=== PATIENT | female | born 1955 | race Caucasian/White ===

== ENCOUNTER → 2017-05-04 | Outpatient (CLI) | payer OTHER | END | disposition home or self-care (01) | LOC: C.LABPBG 12:30 | PROVIDERS: ATTEND Family Medicine | DX: L65.9 Nonscarring hair loss, unspecified (principal) ==

== ENCOUNTER → 2017-06-02 | Outpatient (CLI) | payer OTHER ==
[2017-06-02 15:53] LABS: BASO % 0.6 %; BASO ABS # 0.05 K/uL (0-0.2); COMPLETE YES; EOS % 1.7 %; HEMATOCRIT 46.2 % (37-47); IG% 0.2 %; LYMPH % 27.8 %; MEAN CELL VOLUME 91.3 fL (80-100); MEAN CORPUSCULAR HEMOGLOBIN 31.4 pg (25-34); MEAN CORPUSCULAR HGB CONC 34.4 g/dl (32-36); MEAN PLATELET VOLUME 10.3 fL (7.4-10.4); MONO % 8.3 %; NEUT % 61.4 %; PLATELET COUNT 288 K/uL (130-400); RED BLOOD COUNT 5.06 M/uL (4.2-5.4); WHITE BLOOD COUNT 8.28 K/uL (4.8-10.8)
[2017-06-02 16:23] LABS: FERRITIN 25.7 ng/ml (8.0-388.0)
[2017-06-02 17:00] LABS: LYME DISEASE AB IGG NEG (NEG); LYME DISEASE AB IGM NEG (NEG)
[2017-06-07 23:57] LABS: 18KDIGG BAND NONREACTIVE (NONREACTIVE); 23KDIGG BAND NONREACTIVE (NONREACTIVE); 23KDIGM BAND NONREACTIVE (NONREACTIVE); 28KDIGG BAND NONREACTIVE (NONREACTIVE); 30KDIGG BAND NONREACTIVE (NONREACTIVE); 39KDIGG BAND NONREACTIVE (NONREACTIVE); 39KDIGM BAND NONREACTIVE (NONREACTIVE); 41KDIGG BAND NONREACTIVE (NONREACTIVE); 41KDIGM BAND NONREACTIVE (NONREACTIVE); 45KDIGG BAND REACTIVE (NONREACTIVE); 58KDIGG BAND NONREACTIVE (NONREACTIVE); 66KDIGG BAND NONREACTIVE (NONREACTIVE); 93KDIGG BAND NONREACTIVE (NONREACTIVE)
== END | disposition home or self-care (01) ==
LOC: C.LAB1850 14:44
PROVIDERS: ATTEND Dermatology
DX: L65.9 Nonscarring hair loss, unspecified (principal)

== ENCOUNTER → 2017-07-07 | Outpatient (CLI) | payer OTHER ==
[2017-07-07 17:43] LABS: URINE APPEARANCE CLEAR (CLEAR); URINE BILIRUBIN NEG (NEG); URINE COLOR YELLOW; URINE EPITHELIAL CELL AUTO 0-5 /lpf (0-5); URINE NITRITE NEG (NEG); URINE SPECIFIC GRAVITY 1.021 (1.000-1.030); UROBILINOGEN NEG (NEG)
[2017-07-07 17:47] LABS: MANUAL MICROSCOPIC REQUIRED? NO; REVIEW REQ? NO
[2017-07-13 02:34] LABS: ANTI-CENTROMERE AB <1.0 NEG AI (<1.0 NEG); ANTI-SS-A <1.0 NEG AI (<1.0 NEG); ANTI-SS-B <1.0 NEG AI (<1.0 NEG); DNA ds CRITHIDIA NEGATIVE (NEGATIVE); Sm Antibody <1.0 NEG AI (<1.0 NEG)
[2017-07-14 11:34] LABS: ANA TITER 1:40 TITER (<1:40)
== END | disposition home or self-care (01) ==
LOC: C.LABPBG 14:35
PROVIDERS: ATTEND Internal Medicine Rheumatology
DX: L65.9 Nonscarring hair loss, unspecified (principal); R76.8 Other specified abnormal immunological findings in serum

== ENCOUNTER → 2017-07-21 | Outpatient (CLI) | payer OTHER | END | disposition home or self-care (01) | LOC: C.LABSPEC 12:41 | PROVIDERS: ATTEND Dermatology | DX: R21 Rash and other nonspecific skin eruption (principal) ==

== ENCOUNTER 2023-07-30 17:26 | Inpatient (IN) ==
[2023-07-30] MEDS ORDERED: SODIUM CHLORIDE 0.9% 500 ML IV STA (18:05)
[2023-07-30] MEDS ORDERED: MoRPHine SULFATE 4 MG/ML 1 ML CARP\\VIAL IV STA (18:05)
[2023-07-30] MEDS ORDERED: KETOROLAC TROMETHAMINE 15 MG/ML VIAL IV STA (18:05)
[2023-07-30] MEDS ORDERED: ONDANSETRON INJ 2 MG/ML 2 ML VIAL IV STA (18:05)
--- NOTE | 2023-07-30 18:13 | Emergency Department Note ---
Impression & Plan Epigastric abdominal pain, Vomiting, Dilation of common bile duct, Elevated liver enzymes, Gall stones ED Provider Note NAME: MARY GIL AGE: 68 SEX: F : 1955 ARRIVES VIA: Walk-In INFORMANT: [Patient] ED PROVIDER(S): [Yasir Haney MD] CHIEF COMPLAINT: Abdominal pain HISTORY OF PRESENT ILLNESS: The patient is a 68-year-old female presents with 3 days of upper abdominal pa in. The pain seems to come on primarily after eating and lasts for several hours. The pain becomes fairly severe and radiates to the back. She has vomited a few times. She has had no urinary complaints or diarrhea, no fever or chills, no cough or congestion. She has had a surgery in the past, no history of any other abdominal surgeries. The patient does admit to some increased stress lately. She came from her father's today. PMHx/PSHx: See Below SOCIAL HISTORY: See Below. PHYSICAL EXAM: GENERAL: Patient is in no acute distress. HEENT: No acute trauma, normocephalic atraumatic, mucous membranes moist, no nasal congestion. NECK: No stridor, no adenopathy, no meningismus, trachea is midline. LUNGS: Clear to auscultation bilaterally, no wheeze, no rhonchi, breath sounds equal. HEART: Without murmurs gallops or rubs, regular rate and rhythm. ABDOMEN: Soft, moderately tender in the epigastrium and right upper quadrant, no distention. EXTREMITIES: No cyanosis or edema, full range of motion of all the joints without pain or difficulty, no signs for acute trauma. NEUROLOGIC: Oriented x 3, no acute motor or sensory deficits, no focal weakness. SKIN: No rash, no jaundice, no diaphoresis. DIFFERENTIAL DIAGNOSIS: Biliary colic, acute cholecystitis, gastritis, ulcer, pancreatitis, diverticulitis, cardiac ischemia/DE, among others. EMERGENCY DEPARTMENT COURSE/PROCEDURES: Prior/Outside records reviewed: Previous family practice note. ECG per my interpretation: Indication was abdominal pain. The ECG shows a normal sinus rhythm with a rate of 80. There is some nonspecific ST change. There is no ST elevation, no PVCs but the QTc is 470. Continuous Cardiac Monitoring per my interpretation: An order was placed for continuous cardiac monitoring. The monitor shows a rate of 86 with normal sinus rhythm. MEDICAL DECISION MAKING: There is a mild leukocytosis, this could be consistent with infection or just her pain. There was a slightly high hemoglobin value. There was a normal platelet count. Potassium slightly low but not in need of emergent correction. No renal failure. Liver enzymes were elevated. No evidence for pancreatitis. ECG shows a normal sinus rhythm, no ischemia. Cardiac enzyme testing x1 is not consistent with acute cardiac injury. Urinalysis does not show infection. Chest film per my review does not show mediastinal widening, free air or pneumonia. Gallbladder ultrasound shows a dilated common bile duct with gallstones. No findings of acute cholecystitis. On exam, the patient was tender in the epigastrium and right upper quadrant. Patient received IV saline for hydration. She received IV Zofran, IV morphine, IV Toradol. The patient appears to have biliary colic as the cause for her complaints. She does have what appears to be a stone blocking her common bile duct. I spoke with general surgery. They recommended a medical admission with a GI consult and then surgical consult. I did speak with the patient and case management, the on-call hospitalist was consulted. DISPOSITION: Patient's presentation and findings warrant a hospital stay. Past Med/Surg History Medical History (Updated 07/30/23 @ 22:03 by Yasir Haney MD) Alopecia areata Hypertension Insomnia Migraine Surgical History History of bilateral cataract extraction History of bilateral tubal ligation History of section x3 History of colonoscopy History of dilatation and curettage History of surgical procedure on mouth dental implant History of tonsillectomy History of wisdom tooth extraction Family History (Updated 07/05/23 @ 10:00 by Anaya Solitario MD) Aunt Family hx of colon cancer Brother Cardiac disorder Father Cardiac disorder Myocardial infarction Thyroid disease Liver cancer angiosarcoma, due to work place exposure Mother Cardiac disorder Myocardial infarction Thyroid disease Hypertension Sister No problems noted. Daughter No problems noted. Daughter Drug abuse Other No family history of adverse response to anesthesia Denies family history of Ovarian cancer Prostate cancer Breast cancer Social History Smoking Status: Never smoker Age Started Using Tobacco: 22; Cigarettes Per Day: 10 a day; Second Hand Exposure: No; Do You Dip or Chew Tobacco: No; Hx Alcohol Use: No Hx Substance Use: No Preferred Language: Swazi Communication Ability: Effective Visual Impairment: No Limitations Hearing Ability: Normal Emergency Dispatch Operator Required: No Beliefs That Will Affect Care: None marital status: Single Current Living Situation: Significant Other current occupational status: employed current occupation: ACCOUNTING How many Children do You have: 2 Feels Safe at Home: Yes Childhood Exposure to Second-Hand Smoke: No Diet: regular caffeine: Yes during the past year weight has: increased > 10 lbs Dental Care, Regularly: Yes Physical Activity Frequency: Daily Seatbelt Use: sometimes Sunscreen Use: No Do you think of yourself as: straight/heterosexual Assistive Devices: None Allergies Allergies Allergy/AdvReac Type Severity Reaction Status Date / Time No Known Drug Allergies Allergy Verified 07/05/23 09:27 Home Meds Previous Rx's Medication Instructions Recorded sumatriptan succinate 100 mg tablet 100 mg PO UD PRN Migraine Headache 06/09/22 #10 tabs trazodone 50 mg tablet 50 mg PO HS #90 tabs 09/07/22 hydrochlorothiazide 25 mg tablet 25 mg PO DAILY #90 tabs 10/28/22 amlodipine 10 mg tablet 10 mg PO DAILY #90 tabs 01/24/23 Results & Data (ED) Vital Signs Vital Signs - 24 hr 07/30/23 17:38 07/30/23 18:01 07/30/23 18:09 Temperature 36.6 C Temperature Source Temporal Artery Scan Pulse Rate 97 H 86 Pulse Rate from SpO2 Sensor Respiratory Rate 16 Respiratory Effort / Characteristics Non-Labored Respiratory Depth Normal Blood Pressure 172/95 H Blood Pressure Mean 120 Pulse Oximetry 97 98 Oxygen Delivery Method Room Air Room Air Sepsis Recent Fever Within 48 Hours No Sepsis New/Unexplained Change in Mental Status No Sepsis Action Taken by Nursing No Action Required 07/30/23 18:01 07/30/23 18:10 07/30/23 18:20 Temperature Temperature Source Pulse Rate 85 79 77 Pulse Rate from SpO2 Sensor 78 74 Respiratory Rate 19 16 13 Respiratory Effort / Characteristics Respiratory Depth Blood Pressure Blood Pressure Mean Pulse Oximetry 98 98 Oxygen Delivery Method Sepsis Recent Fever Within 48 Hours Sepsis New/Unexplained Change in Mental Status Sepsis Action Taken by Nursing 07/30/23 18:25 07/30/23 18:25 07/30/23 18:30 Temperature Temperature Source Pulse Rate 81 79 Pulse Rate from SpO2 Sensor 82 79 Respiratory Rate 20 19 Respiratory Effort / Characteristics Respiratory Depth Blood Pressure 181/97 H Blood Pressure Mean 126 Pulse Oximetry 98 97 Oxygen Delivery Method Sepsis Recent Fever Within 48 Hours Sepsis New/Unexplained Change in Mental Status Sepsis Action Taken by Nursing 07/30/23 18:40 07/30/23 19:29 07/30/23 19:31 Temperature Temperature Source Pulse Rate 82 Pulse Rate from SpO2 Sensor 82 78 Respiratory Rate 19 Respiratory Effort / Characteristics Respiratory Depth Blood Pressure 131/80 Blood Pressure Mean 87 Pulse Oximetry 95 95 Oxygen Delivery Method Sepsis Recent Fever Within 48 Hours Sepsis New/Unexplained Change in Mental Status Sepsis Action Taken by Skilled Nursing Medications Current Medication List: was personally reviewed by me Laboratory Data Attestation: I reviewed the patient's lab results. 07/30/23 18:06 07/30/23 18:06 Lab Results 07/30/23 07/30/23 07/30/23 Range/Units 18:06 18:06 19:40 WBC 12.12 H (4.8-10.8) K/ul RBC 5.33 (4.20-5.40) M/uL Hgb 16.4 H (12.0-16.0) g/dl Hct 46.4 (37.0-47.0) % MCV 87.1 (80.0-100.0) fL MCH 30.8 (25.0-34.0) pg MCHC 35.3 (32.0-36.0) g/dL RDW Std Deviation 43.5 (36.4-46.3) fL RDW Coeff of Laney 13.6 (11.5-14.5) % Plt Count 372 (130-400) K/uL MPV 10.6 (9.4-12.4) fL Immature Gran % (Auto) 0.5 % Neut % (Auto) 75.9 % Lymph % (Auto) 13.0 % Posey % (Auto) 8.7 % Eos % (Auto) 1.2 % Baso % (Auto) 0.7 % Neut # (Auto) 9.19 H (1.40-6.50) K/uL Lymph # (Auto) 1.58 (1.20-3.40) K/uL Posey # (Auto) 1.06 H (0.11-0.59) K/uL Eos # (Auto) 0.15 (0.00-0.50) K/uL Baso # (Auto) 0.08 (0.00-0.20) K/uL Immature Gran # (Auto) 0.06 (0.01-0.20) K/uL Sodium 140 (136-145) mmol/L Potassium 3.4 L (3.5-5.1) mmol/L Chloride 104 (98-107) mmol/L Carbon Dioxide 27 (21-32) mmol/L Anion Gap 9 (3-11) BUN 20 (6-23) mg/dl Creatinine 0.93 (0.6-1.2) mg/dl Est Cr Clr Drug Dosing Not Reportable Est GFR ( Amer) 74.2 ml/min Est GFR (Non-Af Amer) 64.0 ml/min BUN/Creatinine Ratio 21.5 H (10-20) Glucose 124 H (70-99(Fasting)) mg/dl Calcium 10.1 (8.6-10.3) mg/dl Total Bilirubin 1.5 H (0.2-1.0) mg/dl AST 231 H (13-39) U/L ALT 205 H (7-52) U/L Alkaline Phosphatase 190 H (34-104) U/L Troponin I High Sens 5.6 (0-14) pg/ml Total Protein 8.0 (6.0-8.3) gm/dl Albumin 4.7 (3.4-5.0) gm/dl Globulin 3.3 (2.5-4.0) gm/dl Albumin/Globulin Ratio 1.4 (0.9-2) Lipase 31 (11-82) U/L Urine Color Yellow Urine Appearance Clear (Clear) Urine pH 7.0 (4.5-7.5) Ur Specific [place] 1.012 (1.000-1.030) Urine Protein Negative (Negative) Urine Glucose (UA) Negative (Negative) Urine Ketones Trace H (Negative) Urine Blood Negative (Negative) Urine Nitrite Negative (Negative) Urine Bilirubin Negative (Negative) Urine Urobilinogen Negative (Negative) Ur Leukocyte Esterase Negative (Negative) Administered Medications Potassium Chloride/Sodium Chloride (Normal Saline W/20 Meq Kcl) 20 meq in 1,000 mls @ 100 mls/hr IV .Q10H LEAH; Protocol Stop: 08/29/23 21:14 Last Admin: 07/30/23 21:40 Dose: 100 mls/hr Documented By: ML Discontinued Medications Sodium Chloride (Nss) 500 mls @ 999 mls/hr IV .Q31M STA Stop: 07/30/23 18:35 Last Infusion: 07/30/23 19:04 Dose: 0 mls/hr Documented By: Admin: 07/30/23 18:19 Dose: 999 mls/hr Documented By: ML Pantoprazole Sodium 40 mg/ (Syringe) 10 mls @ 5 mls/min IV NOW ONE Stop: 07/30/23 21:16 Last Admin: 07/30/23 21:40 Dose: 5 mls/min Documented By: ML Piperacillin Sod/Tazobactam Sod (Zosyn) 4.5 gm in 100 mls @ 200 mls/hr IV NOW STA Stop: 07/30/23 21:54 Last Admin: 07/30/23 21:40 Dose: 200 mls/hr Documented By: ML Ketorolac Tromethamine (Ketorolac Tromethamine 15 Mg/Ml Vial) 10 mg IV NOW STA Stop: 07/30/23 18:06 Last Admin: 07/30/23 18:17 Dose: 10 mg Documented By: ML Morphine Sulfate (Morphine Sulfate 4 Mg/Ml 1 Ml Carp\Vial) 4 mg IV NOW STA Stop: 07/30/23 18:06 Last Admin: 07/30/23 18:17 Dose: 4 mg Documented By: ML Ondansetron HCl (Ondansetron Inj 2 Mg/Ml 2 Ml Vial) 4 mg IV NOW STA Stop: 07/30/23 18:06 Last Admin: 07/30/23 18:17 Dose: 4 mg Documented By: ML Imaging Data Radiologist's Impression: Chest X-Ray 07/30/23 18:05 XR chest 1V portable CLINICAL HISTORY: abd pain TECHNIQUE: Single frontal radiograph of the chest was obtained. Comparison: None available at the time of this dictation. FINDINGS: No lines and tubes are seen. The cardiomediastinal silhouette is normal. The lungs are clear. No evidence of pleural effusion or pneumothorax. IMPRESSION: No acute chest disease. ACT 112: Negative or not required by law. Electronically signed by: Bill Jara M.D. 07/30/2023 6:53 PM Gallbladder Ultrasound 10/14/23 18:06 US gallbladder CLINICAL HISTORY: ruq pain TECHNIQUE: Multiple real-time sonographic images of the right upper quadrant were obtained. Comparison: None available at the time of this dictation. FINDINGS: Intrahepatic biliary ductal dilation is noted. No focal mass lesions are seen. No intrahepatic ductal dilatation is seen. Linear hyperechoic foci with posterior shadowing are identified layering dependently within the gallbladder, which are consistent with gallstones. The gallbladder wall is not thickened. There is no pericholecystic fluid present. Mustafa's sign cannot be assessed as the patient received pain medication. The common duct measures 12 cm in diameter at the level of the hepatic artery. Pancreatic duct is dilated measuring 3.2 mm. Mild hydronephrosis is noted kidney. No ascites or free fluid is seen in Vega's pouch. IMPRESSION: 1. Dilation of the intra and extrahepatic biliary ducts as well as the pancreatic duct, suspicious for common bile duct obstruction. 2. Mild hydronephrosis of the right kidney. ACT 112: Negative or not required by law. Electronically signed by: Bill Jara M.D. 07/30/2023 7:48 PM Discharge Plan Visit Data Chief Complaint: Abdominal Pain Stated Complaint: PAIN LOWER BREASTS FOR 5 DAYS ED Provider: Yasir Haney Discharge Problem: Epigastric abdominal pain, Vomiting, Dilation of common bile duct, Elevated liver enzymes, Gall stones Patient Disposition: Admitted As Inpatient Condition: Fair Forms Stand Alone Forms: [facility] Prescriptions Prescriptions: No Action sumatriptan succinate 100 mg tablet 100 mg PO UD PRN (Reason: Migraine Headache) Qty: 10 5RF Rx Instructions: 100 mg PO TAKE ONE TABLET AT ONSET OF MIGRAINE; MAY REPEAT IN 2 HOURS IF NEEDED trazodone 50 mg tablet 50 mg PO HS Qty: 90 3RF hydrochlorothiazide 25 mg tablet 25 mg PO DAILY Qty: 90 1RF amlodipine 10 mg tablet 10 mg PO DAILY Qty: 90 1RF Referrals Referrals: Anaya Solitario MD [Primary Care Provider] -
[2023-07-30 18:39] LABS: Basophils # (auto) 0.08 K/uL (0.00-0.20); Basophils % (auto) 0.7 %; Eosinophils # (auto) 0.15 K/uL (0.00-0.50); Eosinophils % (auto) 1.2 %; Hematocrit (blood only) 46.4 % (37.0-47.0); Hemoglobin 16.4 g/dl (12.0-16.0); Immature Granulocytes # (auto) 0.06 K/uL (0.01-0.20); Immature Granulocytes % (auto) 0.5 %; Lymphocytes # (auto) 1.58 K/uL (1.20-3.40); Mean Corpuscular Hemoglobin 30.8 pg (25.0-34.0); Mean Corpuscular Hgb Conc 35.3 g/dL (32.0-36.0); Mean Corpuscular Volume 87.1 fL (80.0-100.0); Mean Platelet Volume 10.6 fL (9.4-12.4); Monocytes # (auto) 1.06 K/uL (0.11-0.59); Monocytes % (auto) 8.7 %; Neutrophils # (auto) 9.19 K/uL (1.40-6.50); Neutrophils % (auto) 75.9 %; Platelet Count 372 K/uL (130-400); RDW Coefficient of Variation 13.6 % (11.5-14.5); RDW Standard Deviation 43.5 fL (36.4-46.3); Red Blood Count 5.33 M/uL (4.20-5.40); White Blood Count 12.12 K/ul (4.8-10.8)
--- NOTE | 2023-07-30 18:54 | XRay Report ---
XR chest 1V portable CLINICAL HISTORY: abd pain TECHNIQUE: Single frontal radiograph of the chest was obtained. Comparison: None available at the time of this dictation. FINDINGS: No lines and tubes are seen. The cardiomediastinal silhouette is normal. The lungs are clear. No evid ence of pleural effusion or pneumothorax. IMPRESSION: No acute chest disease. ACT 112: Negative or not required by law. Electronically signed by: Bill Jara M.D. 07/30/2023 6:53 PM
[2023-07-30 18:56] LABS: Alanine Aminotransferase 205 U/L (7-52); Albumin Globulin Ratio 1.4 (0.9-2); Albumin Level 4.7 gm/dl (3.4-5.0); Alkaline Phosphatase 190 U/L (34-104); Anion Gap 9 (3-11); Aspartate Aminotransferase 231 U/L (13-39); BUN Creatinine Ratio 21.5 (10-20); Bilirubin,Total 1.5 mg/dl (0.2-1.0); Blood Urea Nitrogen 20 mg/dl (6-23); Calcium 10.1 mg/dl (8.6-10.3); Carbon Dioxide 27 mmol/L (21-32); Chloride 104 mmol/L (98-107); Est GFR (African American) 74.2 ml/min; Globulin 3.3 gm/dl (2.5-4.0); Glucose 124 mg/dl (70-99(Fasting)); Lipase 31 U/L (11-82); Potassium 3.4 mmol/L (3.5-5.1); Sodium 140 mmol/L (136-145)
[2023-07-30 19:01] LABS: Troponin I High Sensitivity 5.6 pg/ml (0-14)
--- NOTE | 2023-07-30 19:50 | Ultrasound Report ---
US gallbladder CLINICAL HISTORY: ruq pain TECHNIQUE: Multiple real-time sonographic images of the right upper quadrant were obtained. Comparison: None available at the time of this dictation. FINDINGS: Intrahepatic biliary ductal dilation is noted. No focal mass lesions are seen. No intrahepatic denise anitra dilatation is seen. Linear hyperechoic foci with posterior shadowing are identified layering dep endently within the gallbladder, which are consistent with gallstones. The gallbladder wall is not th ickened. There is no pericholecystic fluid present. Mustafa's sign cannot be assessed as the patient received pain medication. The common duct measures 12 cm in diameter at the level of the hepatic [place] ry. Pancreatic duct is dilated measuring 3.2 mm. Mild hydronephrosis is noted kidney. No ascites or free fluid is seen in Vega's pouch. IMPRESSION: 1. Dilation of the intra and extrahepatic biliary ducts as well as the pancreatic duct, suspicious f or common bile duct obstruction. 2. Mild hydronephrosis of the right kidney. ACT 112: Negative or not required by law. Electronically signed by: Bill Jara M.D. 07/30/2023 7:48 PM
[2023-07-30 20:40] LABS: Appearance Urine Clear (Clear); Bilirubin Urine Negative (Negative); Blood Urine Negative (Negative); Color Urine Yellow; Glucose Urine UA Negative (Negative); Ketones Urine Trace (Negative); Leukocyte Esterase Urine Negative (Negative); Nitrite Urine Negative (Negative); Protein Urine Negative (Negative); Specific Gravity Urine 1.012 (1.000-1.030); Urobilinogen Urine Negative (Negative)
[2023-07-30] MEDS ORDERED: MoRPHine SULFATE 4 MG/ML 1 ML CARP\\VIAL IV PRN (21:08)
[2023-07-30] MEDS ORDERED: ONDANSETRON INJ 2 MG/ML 2 ML VIAL IV PRN (21:12)
[2023-07-30] MEDS ORDERED: LORazepam 2 MG/1 ML VIAL IV ONE (21:15)
[2023-07-30] MEDS ORDERED: PANTOprazole 40 MG in SYRINGE 0 ML IV ONE (21:15)
[2023-07-30] MEDS ORDERED: PIPERACILLIN/TAZOBACTAM 4.5 GM/100 ML BAG IV STA (21:25)
[2023-07-30] MEDS ORDERED: hydrALAZINE HCL 20 MG/ML VIAL IV PRN (21:36)
--- NOTE | 2023-07-30 21:37 | History & Physical Report ---
Date of Service July 30, 2023 Assessment & Plan (1) Common bile duct obstruction: (2) Abnormal LFTs: (3) Hypokalemia: (4) Hypertension: (5) Hydronephrosis of right kidney: (6) Tobacco use disorder, continuous: (7) Migraine: (8) Dehydration, mild: Plan Common bile duct obstruction/dilated intra and extrahepatic biliary ducts/abnormal LFTs- NPO except ice chips Zofran 4 mg IV every 6 hours as needed Morphine sulfate 4 mg IV every 3 hours as needed for moderate to severe pain Pantoprazole 40 mg IV daily Zosyn 4.5 g IV every 8 hours NSS + KCl 20 mEq at 100 mils per hour Consult gastroenterology Consult general surgery Hypertension/hypokalemia- Hold HCTZ and amlodipine Hydralazine 10 mg IV every 4 hours as needed for systolic blood pressure above 160 Tobacco use disorder- NicoDerm patch 14 mg daily is written for and patient will ask if she wants it Hydronephrosis of right kidney- Noted as an incidental finding on CT Will need follow-up History of Present Illness Chief Complaint: The patient presents to the emergency department with complaint of 3 days of progressively worsening right upper quadrant and epigastric abdominal discomfort, worsened by food intake, occasionally radiating to her back, and had a few episodes of nausea and vomiting today. Primary Care Provider: Anaya Solitario MD The patient is a 68-year-old female with past medical history including hypertension, migraine headache, tobacco use disorder, and insomnia. She presents to the emergency department with symptoms as noted above. Significant abnormal laboratories: WBC 12.12, hemoglobin 16.4, hematocrit 46.4, platelets 3.4, glucose 124, total bilirubin 1.5, AST 231, ALT 205, alk phos 190 X-ray chest negative Gallbladder ultrasound showed dilation of intra and extrahepatic biliary ducts, concerning for common bile duct obstruction. Medications given by ED: NSS 500 mill bolus, Toradol 10 mg IV, Zofran 4 mg IV and morphine sulfate 4 mg IV Allergies Allergy/AdvReac Type Severity Reaction Status Date / Time No Known Drug Allergies Allergy Verified 07/05/23 09:27 Home Medications Medication Instructions Recorded Confirmed Type sumatriptan succinate 100 mg tablet 100 mg PO UD PRN Migraine Headache 06/09/22 07/05/23 Rx #10 tabs trazodone 50 mg tablet 50 mg PO HS #90 tabs 11/22/22 09/19/23 Rx hydrochlorothiazide 25 mg tablet 25 mg PO DAILY #90 tabs 10/28/22 07/05/23 Rx amlodipine 10 mg tablet 10 mg PO DAILY #90 tabs 01/24/23 07/05/23 Rx Past Med/Surg History Medical History (Updated 07/30/23 @ 21:32 by Wallace López MD) Alopecia areata Hypertension Insomnia Migraine Surgical History History of bilateral cataract extraction History of bilateral tubal ligation History of section x3 History of colonoscopy History of dilatation and curettage History of surgical procedure on mouth dental implant History of tonsillectomy History of wisdom tooth extraction Family History (Updated 07/05/23 @ 10:00 by Anaya Solitario MD) Aunt Family hx of colon cancer Brother Cardiac disorder Father Cardiac disorder Myocardial infarction Thyroid disease Liver cancer angiosarcoma, due to work place exposure Mother Cardiac disorder Myocardial infarction Thyroid disease Hypertension Sister No problems noted. Daughter No problems noted. Daughter Drug abuse Other No family history of adverse response to anesthesia Denies family history of Ovarian cancer Prostate cancer Breast cancer Social History Smoking Status: Never smoker Age Started Using Tobacco: 22; Cigarettes Per Day: 10 a day; Second Hand Exposure: No; Do You Dip or Chew Tobacco: No; Hx Alcohol Use: No Hx Substance Use: No Preferred Language: Turkmen Communication Ability: Effective Visual Impairment: No Limitations Hearing Ability: Normal Calculating Machine Operator Required: No Beliefs That Will Affect Care: None marital status: Single Current Living Situation: Significant Other current occupational status: employed current occupation: ACCOUNTING How many Children do You have: 2 Feels Safe at Home: Yes Childhood Exposure to Second-Hand Smoke: No Diet: regular caffeine: Yes during the past year weight has: increased > 10 lbs Dental Care, Regularly: Yes Physical Activity Frequency: Daily Seatbelt Use: sometimes Sunscreen Use: No Do you think of yourself as: straight/heterosexual Assistive Devices: None Review of Systems Review of Systems: The patient denies chest pain, palpitations, shortness of breath, dyspnea on exertion, cough, lower extremity swelling, sore throat, fevers, chills, sweats, diarrhea , constipation, blood in urine or stool, dysuria, urinary frequency or urgency, lightheadedness, dizziness, headache, memory loss, loss of consciousness, rash, abnormal bruising or bleeding, imbalance, focal or generalized weakness, numbness or tingling in arms or legs, generalized arthralgias or myalgias, neck pain, or night sweats. The review of systems is otherwise negative other than for that already noted above, and at least 10 systems have been reviewed. Physical Exam Physical Exam: The patient is awake, alert and oriented 3, well developed and well nourished, normocephalic and atraumatic, lying in bed and in no acute distress. HEENT--PERRL, EOMI, mucous membranes and oropharynx mildly dry. Neck--supple. No JVD. No bruits. Thyroid normal, trachea midline, no adenopathy. Heart--normal S1 and S2. No murmurs, rubs or gallops. Lungs--clear bilaterally, no respiratory distress, no accessory muscle use. Abdomen--normal bowel sounds and soft. Mildly tender right upper quadrant status post morphine. Nondistended, no hernias or masses, no organomegaly. Extremities--no cyanosis or clubbing. No edema. Dermatologic--normal skin turgor, normal color, no abnormal lymph nodes, no rash. Neurologic--cranial nerves II through XII grossly intact. Rheumatologic--normal range of motion. Psychiatric--normal affect. Results & Data Results & Data Vital Signs (Past 12 Hours) Vital Signs Temp Pulse Resp BP Pulse Ox O2 Del Method 07/30/23 19:31 131/80 07/30/23 19:29 95 07/30/23 18:40 82 19 95 07/30/23 18:30 79 19 97 07/30/23 18:25 181/97 H 07/30/23 18:25 81 20 98 07/30/23 18:20 77 13 98 07/30/23 18:10 79 16 98 07/30/23 18:01 85 19 07/30/23 18:09 98 Room Air 07/30/23 18:01 86 07/30/23 17:38 36.6 C 97 H 16 172/95 H 97 Room Air Laboratory Results Laboratory Results WBC 12.12 K/ul (4.8-10.8) H 07/30/23 18:06 RBC 5.33 M/uL (4.20-5.40) 07/30/23 18:06 Hgb 16.4 g/dl (12.0-16.0) H 07/30/23 18:06 Hct 46.4 % (37.0-47.0) 07/30/23 18:06 MCV 87.1 fL (80.0-100.0) 07/30/23 18:06 MCH 30.8 pg (25.0-34.0) 07/30/23 18:06 MCHC 35.3 g/dL (32.0-36.0) 07/30/23 18:06 RDW Std Deviation 43.5 fL (36.4-46.3) 07/30/23 18:06 RDW Coeff of Laney 13.6 % (11.5-14.5) 07/30/23 18:06 Plt Count 372 K/uL (130-400) 07/30/23 18:06 MPV 10.6 fL (9.4-12.4) 07/30/23 18:06 Immature Gran % (Auto) 0.5 % 07/30/23 18:06 Neut % (Auto) 75.9 % 07/30/23 18:06 Lymph % (Auto) 13.0 % 07/30/23 18:06 [place] % (Auto) 8.7 % 07/30/23 18:06 Eos % (Auto) 1.2 % 07/30/23 18:06 Baso % (Auto) 0.7 % 07/30/23 18:06 Neut # (Auto) 9.19 K/uL (1.40-6.50) H 07/30/23 18:06 Lymph # (Auto) 1.58 K/uL (1.20-3.40) 07/30/23 18:06 [place]ucks # (Auto) 1.06 K/uL (0.11-0.59) H 07/30/23 18:06 Eos # (Auto) 0.15 K/uL (0.00-0.50) 07/30/23 18:06 Baso # (Auto) 0.08 K/uL (0.00-0.20) 07/30/23 18:06 Immature Gran # (Auto) 0.06 K/uL (0.01-0.20) 07/30/23 18:06 Sodium 140 mmol/L (136-145) 07/30/23 18:06 Potassium 3.4 mmol/L (3.5-5.1) L 07/30/23 18:06 Chloride 104 mmol/L (98-107) 07/30/23 18:06 Carbon Dioxide 27 mmol/L (21-32) 07/30/23 18:06 Anion Gap 9 (3-11) 07/30/23 18:06 BUN 20 mg/dl (6-23) 07/30/23 18:06 Creatinine 0.93 mg/dl (0.6-1.2) 07/30/23 18:06 Est Cr Clr Drug Dosing Not Reportable 07/30/23 18:06 Est GFR ( Amer) 74.2 ml/min 07/30/23 18:06 Est GFR (Non-Af Amer) 64.0 ml/min 07/30/23 18:06 BUN/Creatinine Ratio 21.5 (10-20) H 07/30/23 18:06 Glucose 124 mg/dl (70-99(Fasting)) H 07/30/23 18:06 Calcium 10.1 mg/dl (8.6-10.3) 07/30/23 18:06 Total Bilirubin 1.5 mg/dl (0.2-1.0) H 07/30/23 18:06 AST 231 U/L (13-39) H 07/30/23 18:06 ALT 205 U/L (7-52) H 07/30/23 18:06 Alkaline Phosphatase 190 U/L (34-104) H 07/30/23 18:06 Troponin I High Sens 5.6 pg/ml (0-14) 07/30/23 18:06 Total Protein 8.0 gm/dl (6.0-8.3) 07/30/23 18:06 Albumin 4.7 gm/dl (3.4-5.0) 07/30/23 18:06 Globulin 3.3 gm/dl (2.5-4.0) 07/30/23 18:06 Albumin/Globulin Ratio 1.4 (0.9-2) 07/30/23 18:06 Lipase 31 U/L (11-82) 07/30/23 18:06 Urine Color Yellow 07/30/23 19:40 Urine Appearance Clear (Clear) 07/30/23 19:40 Urine pH 7.0 (4.5-7.5) 07/30/23 19:40 Ur Specific [place] 1.012 (1.000-1.030) 07/30/23 19:40 Urine Protein Negative (Negative) 07/30/23 19:40 Urine Glucose (UA) Negative (Negative) 07/30/23 19:40 Urine Ketones Trace (Negative) H 07/30/23 19:40 Urine Blood Negative (Negative) 07/30/23 19:40 Urine Nitrite Negative (Negative) 07/30/23 19:40 Urine Bilirubin Negative (Negative) 07/30/23 19:40 Urine Urobilinogen Negative (Negative) 07/30/23 19:40 Ur Leukocyte Esterase Negative (Negative) 07/30/23 19:40 Impressions Chest X-Ray 07/30/23 18:05 XR chest 1V portable CLINICAL HISTORY: abd pain TECHNIQUE: Single frontal radiograph of the chest was obtained. Comparison: None available at the time of this dictation. FINDINGS: No lines and tubes are seen. The cardiomediastinal silhouette is normal. The lungs are clear. No evidence of pleural effusion or pneumothorax. IMPRESSION: No acute chest disease. ACT 112: Negative or not required by law. Electronically signed by: Bill Jara M.D. 07/30/2023 6:53 PM Gallbladder Ultrasound 07/30/23 18:06 US gallbladder CLINICAL HISTORY: ruq pain TECHNIQUE: Multiple real-time sonographic images of the right upper quadrant were obtained. Comparison: None available at the time of this dictation. FINDINGS: Intrahepatic biliary ductal dilation is noted. No focal mass lesions are seen. No intrahepatic ductal dilatation is seen. Linear hyperechoic foci with posterior shadowing are identified layering dependently within the gallbladder, which are consistent with gallstones. The gallbladder wall is not thickened. There is no pericholecystic fluid present. Mustafa's sign cannot be assessed as the patient received pain medication. The common duct measures 12 cm in diameter at the level of the hepatic artery. Pancreatic duct is dilated measuring 3.2 mm. Mild hydronephrosis is noted kidney. No ascites or free fluid is seen in Vega's pouch. IMPRESSION: 1. Dilation of the intra and extrahepatic biliary ducts as well as the pancreatic duct, suspicious for common bile duct obstruction. 2. Mild hydronephrosis of the right kidney. ACT 112: Negative or not required by law. Electronically signed by: Bill Jara M.D. 07/30/2023 7:48 PM Code Status & VTE Plan Code Status Full code VTE Prophylaxis Plan VTE Prophylaxis will be ordered: Yes PG Care Time/CCT Total # of Minutes Spent Total Time Spent with Patient: Total time spent is greater than 50% in coordination of care (as documented) at patient's floor/unit and/or counseling patient: Coding Level of Care Code 54868 INT INP/OBS CARE 3/75MIN Diagnoses Common bile duct obstruction K83.1 Abnormal LFTs R79.89 Hypokalemia E87.6 Hypertension I10 Hydronephrosis of right kidney N13.30 Tobacco use disorder, continuous F17.209 Migraine G43.909 Dehydration, mild E86.0
[2023-07-30] MEDS: NSS + 20MEQ KCL 20 MEQ/1,000 ML BAG IV SCH (21:40)
[2023-07-31] MEDS ORDERED: SUMAtriptan succinate 100 MG TAB PO PRN (00:24)
[2023-07-31] MEDS ORDERED: INFLUENZA VACCINE HIGH-DOSE (HD-IIV4) PF 65+ 0.7mL SYR IM ONE (00:55)
--- NOTE | 2023-07-31 03:43 | Magnetic Resonance Report ---
Exam(s): MRI MRCP EXAM: MR Abdomen Without Intravenous Contrast, MRCP Protocol CLINICAL HISTORY: Reason for exam: CBD obstruction. TECHNIQUE: Multiplanar magnetic resonance images of the abdomen without intravenous contrast using MRCP protocol. MIP reconstructed images were created and reviewed. COMPARISON: Gallbladder ultrasound on 07/30/2023 FINDINGS: Bile ducts: Small stone in the distal common bile duct. Mild biliary dilatation. Common bile duct measures approximately 8 mm in diameter. Gallbladder: Cholelithiasis. No evidence of gallbladder inflammation. Liver: Hepatomegaly. Pancreas: Atrophy of the pancreas. No ductal dilation. Spleen: Unremarkable. No splenomegaly. Adrenals: Unremarkable. No mass. Kidneys and ureters: Small left renal cyst. No hydronephrosis. Stomach and bowel: Evaluation of the stomach is limited by underdistention. IMPRESSION: 1. Small stone in the distal common bile duct. Mild biliary dilatation. Common bile duct measures approximately 8 mm in diameter. 2. Cholelithiasis. No evidence of gallbladder inflammation. Electronically signed by: Contreras Mcintosh M.D. 07/31/23 03:42 AM
[2023-07-31] MEDS: PIPERACILLIN/TAZOBACTAM 4.5 GM in DEXTROSE 5% MINI-B 100 ML IV SCH ×3 (05:52→21:49)
[2023-07-31 08:02] LABS: Albumin Globulin Ratio 1.7 (0.9-2); Albumin Level 3.7 gm/dl (3.4-5.0); BUN Creatinine Ratio 20.4 (10-20); Bilirubin,Total 1.9 mg/dl (0.2-1.0); Calcium 8.7 mg/dl (8.6-10.3); Creatinine Clr Calc Pharmacy 57.7 ml/min; Est GFR (African American) 69.7 ml/min; Est GFR (Non-African American) 60.1 ml/min; Globulin 2.2 gm/dl (2.5-4.0); Magnesium 2.1 mg/dl (1.7-2.4); Potassium 3.9 mmol/L (3.5-5.1); Total Protein 5.9 gm/dl (6.0-8.3)
[2023-07-31 08:09] LABS: Basophils # (auto) 0.07 K/uL (0.00-0.20); Basophils % (auto) 0.9 %; Eosinophils # (auto) 0.21 K/uL (0.00-0.50); Eosinophils % (auto) 2.8 %; Hematocrit (blood only) 38.9 % (37.0-47.0); Hemoglobin 13.3 g/dl (12.0-16.0); Immature Granulocytes # (auto) 0.04 K/uL (0.01-0.20); Immature Granulocytes % (auto) 0.5 %; Lymphocytes # (auto) 1.34 K/uL (1.20-3.40); Lymphocytes % (auto) 17.6 %; Mean Corpuscular Hemoglobin 30.2 pg (25.0-34.0); Mean Corpuscular Hgb Conc 34.2 g/dL (32.0-36.0); Mean Corpuscular Volume 88.2 fL (80.0-100.0); Mean Platelet Volume 10.5 fL (9.4-12.4); Monocytes # (auto) 0.81 K/uL (0.11-0.59); Monocytes % (auto) 10.6 %; Neutrophils # (auto) 5.16 K/uL (1.40-6.50); Neutrophils % (auto) 67.6 %; Platelet Count 301 K/uL (130-400); RDW Coefficient of Variation 13.6 % (11.5-14.5); RDW Standard Deviation 44.4 fL (36.4-46.3); Red Blood Count 4.41 M/uL (4.20-5.40); White Blood Count 7.63 K/ul (4.8-10.8)
[2023-07-31] MEDS: NICOTINE 14 MG/24 HR PATCH TD SCH (08:52)
--- NOTE | 2023-07-31 09:09 | Gastrointestinal Consultation ---
Date of Consultation July 31, 2023 Assessment & Plan (1) Choledocholithiasis: Pleasant woman with choledocholithiasis by lab and MRCP. She needs ERCP. Will defer to [facility] GI team to arrange procedure hopefully for tomorrow. History of Present Illness Reason for Consultation: dilated bile ducts Attending Physician: Wallace López MD History of Present Illness 68 year old female with three days of intermittent severe upper abdominal pain that radiates to her back. This is associated with nausea and vomiting. Pain follows meals and lasts for several hours before resolving. Doesn't know if she has had fever. Does admit to her urine turning dark. U/S showed dilated bile ducts. MRCP shows stone in distal bile duct. Allergies Allergy/AdvReac Type Severity Reaction Status Date / Time No Known Drug Allergies Allergy NKDA Verified 07/30/23 22:27 Home Medications Medication Instructions Recorded Confirmed Type sumatriptan succinate 100 mg tablet 100 mg PO UD PRN Migraine Headache 06/09/22 07/30/23 Rx #10 tabs trazodone 50 mg tablet 50 mg PO HS #90 tabs 09/07/22 07/30/23 Rx hydrochlorothiazide 25 mg tablet 25 mg PO DAILY #90 tabs 10/28/22 07/30/23 Rx amlodipine 10 mg tablet 10 mg PO DAILY #90 tabs 01/24/23 07/30/23 Rx [id number]-[id number] 250 2 tab PO DIRECTED PRN Migraine 07/30/23 07/30/23 History mg-250 mg-65 mg tablet (Excedrin Headache Migraine) Patient History Medical History (Updated 07/31/23 @ 09:08 by Abe Ferrara Jr, MD) Alopecia areata Choledocholithiasis Hypertension Insomnia Migraine Surgical History History of bilateral cataract extraction History of bilateral tubal ligation History of section x3 History of colonoscopy History of dilatation and curettage History of surgical procedure on mouth dental implant History of tonsillectomy History of wisdom tooth extraction Family History Aunt Family hx of colon cancer Brother Cardiac disorder Father Cardiac disorder Myocardial infarction Thyroid disease Liver cancer angiosarcoma, due to work place exposure Mother Cardiac disorder Myocardial infarction Thyroid disease Hypertension Sister No problems noted. Daughter No problems noted. Daughter Drug abuse Other No family history of adverse response to anesthesia Denies family history of Ovarian cancer Prostate cancer Breast cancer Social History Smoking Status: Current every day smoker Tobacco Type: Cigarettes Age Started Using Tobacco: 22; Cigarettes Per Day: 1/2 pack to 1 pack; Second Hand Exposure: No; Do You Dip or Chew Tobacco: No; Tobacco Cessation Education Requested by Patient: No Hx Alcohol Use: No Hx Substance Use: No Preferred Language: Comoran Communication Ability: Effective Visual Impairment: No Limitations Hearing Ability: Normal Procedure Analyst Required: No Beliefs That Will Affect Care: None marital status: Single Current Living Situation: Family current occupational status: employed current occupation: ACCOUNTING How many Children do You have: 2 Other Information That Helps Us Care for You: No Feels Safe at Home: Yes Safety Concerns: Feels Safe At This Time Childhood Exposure to Second-Hand Smoke: No Diet: regular caffeine: Yes during the past year weight has: increased > 10 lbs Dental Care, Regularly: Yes Physical Activity Frequency: Daily Seatbelt Use: sometimes Sunscreen Use: No Do you think of yourself as: straight/heterosexual Assistive Devices: None Review of Systems Review of Systems: All systems reviewed & are unremarkable except as noted in HPI & below Results & Data Vital Signs (Past 12 Hours) Vital Signs Temp Pulse Pulse Pulse Resp BP Pulse Ox 07/31/23 07:35 07/31/23 06:09 36.8 C 75 18 123/70 98 07/31/23 00:50 36.2 C L 72 16 109/69 93 07/30/23 22:30 69 16 123/66 96 07/30/23 21:55 73 O2 Del Method 07/31/23 07:35 Room Air 07/31/23 06:09 Room Air 07/31/23 00:50 Room Air 07/30/23 22:30 Room Air 07/30/23 21:55 Laboratory Results 07/30/23 07/30/23 07/30/23 18:06 18:06 19:40 WBC 12.12 H RBC 5.33 Hgb 16.4 H Hct 46.4 MCV 87.1 MCH 30.8 MCHC 35.3 RDW Std Deviation 43.5 RDW Coeff of Laney 13.6 Plt Count 372 MPV 10.6 Immature Gran % (Auto) 0.5 Neut % (Auto) 75.9 Lymph % (Auto) 13.0 [place] % (Auto) 8.7 Eos % (Auto) 1.2 Baso % (Auto) 0.7 Neut # (Auto) 9.19 H Lymph # (Auto) 1.58 [place] # (Auto) 1.06 H Eos # (Auto) 0.15 Baso # (Auto) 0.08 Immature Gran # (Auto) 0.06 Sodium 140 Potassium 3.4 L Chloride 104 Carbon Dioxide 27 Anion Gap 9 BUN 20 Creatinine 0.93 Est Cr Clr Drug Dosing Not Reportable Est GFR ( Amer) 74.2 Est GFR (Non-Af Amer) 64.0 BUN/Creatinine Ratio 21.5 H Glucose 124 H Calcium 10.1 Magnesium Total Bilirubin 1.5 H AST 231 H ALT 205 H Alkaline Phosphatase 190 H Troponin I High Sens 5.6 Total Protein 8.0 Albumin 4.7 Globulin 3.3 Albumin/Globulin Ratio 1.4 Lipase 31 Urine Color Yellow Urine Appearance Clear Urine pH 7.0 Ur Specific [place] 1.012 Urine Protein Negative Urine Glucose (UA) Negative Urine Ketones Trace H Urine Blood Negative Urine Nitrite Negative Urine Bilirubin Negative Urine Urobilinogen Negative Ur Leukocyte Esterase Negative 07/31/23 07/31/23 06:39 06:39 WBC 7.63 RBC 4.41 Hgb 13.3 D Hct 38.9 MCV 88.2 MCH 30.2 MCHC 34.2 RDW Std Deviation 44.4 RDW Coeff of [place] 13.6 Plt Count 301 MPV 10.5 Immature Gran % (Auto) 0.5 Neut % (Auto) 67.6 Lymph % (Auto) 17.6 [place] % (Auto) 10.6 Eos % (Auto) 2.8 Baso % (Auto) 0.9 Neut # (Auto) 5.16 Lymph # (Auto) 1.34 [place] # (Auto) 0.81 H Eos # (Auto) 0.21 Baso # (Auto) 0.07 Immature Gran # (Auto) 0.04 Sodium 142 Potassium 3.9 Chloride 109 H Carbon Dioxide 28 Anion Gap 5 BUN 20 Creatinine 0.98 Est Cr Clr Drug Dosing 57.7 Est GFR ( Amer) 69.7 Est GFR (Non-Af Amer) 60.1 BUN/Creatinine Ratio 20.4 H Glucose 94 Calcium 8.7 Magnesium 2.1 Total Bilirubin 1.9 H AST 378 H ALT 382 H Alkaline Phosphatase 161 H Troponin I High Sens Total Protein 5.9 L D Albumin 3.7 Globulin 2.2 L Albumin/Globulin Ratio 1.7 Lipase Urine Color Urine Appearance Urine pH Ur Specific [place] Urine Protein Urine Glucose (UA) Urine Ketones Urine Blood Urine Nitrite Urine Bilirubin Urine Urobilinogen Ur Leukocyte Esterase Diagnostic Findings Chest X-Ray 07/30/23 18:05 XR chest 1V portable CLINICAL HISTORY: abd pain TECHNIQUE: Single frontal radiograph of the chest was obtained. Comparison: None available at the time of this dictation. FINDINGS: No lines and tubes are seen. The cardiomediastinal silhouette is normal. The lungs are clear. No evidence of pleural effusion or pneumothorax. IMPRESSION: No acute chest disease. ACT 112: Negative or not required by law. Electronically signed by: Bill Jara M.D. 07/30/2023 6:53 PM Gallbladder Ultrasound 07/30/23 18:06 US gallbladder CLINICAL HISTORY: ruq pain TECHNIQUE: Multiple real-time sonographic images of the right upper quadrant were obtained. Comparison: None available at the time of this dictation. FINDINGS: Intrahepatic biliary ductal dilation is noted. No focal mass lesions are seen. No intrahepatic ductal dilatation is seen. Linear hyperechoic foci with posterior shadowing are identified layering dependently within the gallbladder, which are consistent with gallstones. The gallbladder wall is not thickened. There is no pericholecystic fluid present. Mustafa's sign cannot be assessed as the patient received pain medication. The common duct measures 12 cm in diameter at the level of the hepatic artery. Pancreatic duct is dilated measuring 3.2 mm. Mild hydronephrosis is noted kidney. No ascites or free fluid is seen in Vega's pouch. IMPRESSION: 1. Dilation of the intra and extrahepatic biliary ducts as well as the pancreatic duct, suspicious for common bile duct obstruction. 2. Mild hydronephrosis of the right kidney. ACT 112: Negative or not required by law. Electronically signed by: Bill Jara M.D. 07/30/2023 7:48 PM Cholangiopancreatography MRI 07/30/23 21:06 Exam(s): MRI MRCP EXAM: MR Abdomen Without Intravenous Contrast, MRCP Protocol CLINICAL HISTORY: Reason for exam: CBD obstruction. TECHNIQUE: Multiplanar magnetic resonance images of the abdomen without intravenous contrast using MRCP protocol. MIP reconstructed images were created and reviewed. COMPARISON: Gallbladder ultrasound on 07/30/2023 FINDINGS: Bile ducts: Small stone in the distal common bile duct. Mild biliary dilatation. Common bile duct measures approximately 8 mm in diameter. Gallbladder: Cholelithiasis. No evidence of gallbladder inflammation. Liver: Hepatomegaly. Pancreas: Atrophy of the pancreas. No ductal dilation. Spleen: Unremarkable. No splenomegaly. Adrenals: Unremarkable. No mass. Kidneys and ureters: Small left renal cyst. No hydronephrosis. Stomach and bowel: Evaluation of the stomach is limited by underdistention. IMPRESSION: 1. Small stone in the distal common bile duct. Mild biliary dilatation. Common bile duct measures approximately 8 mm in diameter. 2. Cholelithiasis. No evidence of gallbladder inflammation. Electronically signed by: Contreras Mcintosh M.D. 07/31/23 03:42 AM
[2023-07-31] MEDS: NSS + 20MEQ KCL 20 MEQ/1,000 ML BAG IV SCH ×2 (09:28→19:49)
--- NOTE | 2023-07-31 09:30 | Surgery Consultation ---
Date of Consultation July 31, 2023 Assessment & Plan (1) Choledocholithiasis: Agree with abx ERCP Present on Admission?: Yes (2) Gall stones: no signs of cholecystitis lap garrett likely as outpatient Present on Admission?: Yes History of Present Illness Attending Physician: Wallace López MD History of Present Illness This is a 68 year old female admitted upper abdominal pain that radiates to her back, associated with nausea and vomiting. Her pain is consistent with biliary colic.. She denies fever, chills, CP, dysuria, and change in bowel habits. U/S showed dilated intrahepatic ducts without signs of acute cholecystitis. MRCP shows stone in distal bile duct. Scheduled for ERCP in AM. Allergies Allergy/AdvReac Type Severity Reaction Status Date / Time No Known Drug Allergies Allergy NKDA Verified 07/30/23 22:27 Home Medications Medication Instructions Recorded Confirmed Type sumatriptan succinate 100 mg tablet 100 mg PO UD PRN Migraine Headache 06/09/22 07/30/23 Rx #10 tabs trazodone 50 mg tablet 50 mg PO HS #90 tabs 09/07/22 07/30/23 Rx hydrochlorothiazide 25 mg tablet 25 mg PO DAILY #90 tabs 10/28/22 07/30/23 Rx amlodipine 10 mg tablet 10 mg PO DAILY #90 tabs 01/24/23 07/30/23 Rx kzzgspx-rtgfbxflhtkzk-lnkfgbzc 250 2 tab PO DIRECTED PRN Migraine 07/30/23 07/30/23 History mg-250 mg-65 mg tablet (Excedrin Headache Migraine) Patient History Medical History (Updated 07/31/23 @ 09:08 by Abe Ferrara Jr, MD) Alopecia areata Choledocholithiasis Hypertension Insomnia Migraine Surgical History History of bilateral cataract extraction History of bilateral tubal ligation History of section x3 History of colonoscopy History of dilatation and curettage History of surgical procedure on mouth dental implant History of tonsillectomy History of wisdom tooth extraction Family History Aunt Family hx of colon cancer Brother Cardiac disorder Father Cardiac disorder Myocardial infarction Thyroid disease Liver cancer angiosarcoma, due to work place exposure Mother Cardiac disorder Myocardial infarction Thyroid disease Hypertension Sister No problems noted. Daughter No problems noted. Daughter Drug abuse Other No family history of adverse response to anesthesia Denies family history of Ovarian cancer Prostate cancer Breast cancer Social History Smoking Status: Current every day smoker Tobacco Type: Cigarettes Age Started Using Tobacco: 22; Cigarettes Per Day: 1/2 pack to 1 pack; Second Hand Exposure: No; Do You Dip or Chew Tobacco: No; Tobacco Cessation Education Requested by Patient: No Hx Alcohol Use: No Hx Substance Use: No Preferred Language: Portuguese Communication Ability: Effective Visual Impairment: No Limitations Hearing Ability: Normal Satellite Manager Required: No Beliefs That Will Affect Care: None marital status: Single Current Living Situation: Family current occupational status: employed current occupation: ACCOUNTING How many Children do You have: 2 Other Information That Helps Us Care for You: No Feels Safe at Home: Yes Safety Concerns: Feels Safe At This Time Childhood Exposure to Second-Hand Smoke: No Diet: regular caffeine: Yes during the past year weight has: increased > 10 lbs Dental Care, Regularly: Yes Physical Activity Frequency: Daily Seatbelt Use: sometimes Sunscreen Use: No Do you think of yourself as: straight/heterosexual Assistive Devices: None Review of Systems Constitutional: + anorexia; no fever and no chills Eyes: no problem reported Ear, Nose, Mouth, Throat: no problem reported Respiratory: no cough and no dyspnea Cardiovascular: no chest pain Gastrointestinal: + abdominal pain and + nausea; no vomiting and no change in bowel habits Genitourinary: no dysuria Musculoskeletal: + back pain; no neck pain and no joint pain Integumentary: no rash Neurologic: no localized weakness and no generalized weakness Psychiatric: no behavioral changes Hematologic / Lymphatic: no easy bleeding and no easy bruising Physical Exam Constitutional: WD/WN, vitals as above Eyes: PERRL, conjunctivae normal, anicteric sclerae Neck: trachea midline Respiratory: normal respiratory effort, lungs clear to auscultation Cardiovascular: RRR, no murmur, no edema Gastrointestinal (Abdomen): Inspection/Auscultation: abdomen normal to inspection and normal bowel sounds; abdomen not distended Percussion/Palpa tion: + abdomen tender and abdomen soft; no guarding and abdomen not rigid Musculoskeletal: Head/Neck/Chest: normocephalic and head atraumatic Skin: no rashes, warm and dry Results & Data Vital Signs (Past 12 Hours) Vital Signs Temp Pulse Pulse Pulse Resp BP Pulse Ox 07/31/23 07:35 07/31/23 06:09 36.8 C 75 18 123/70 98 07/31/23 00:50 36.2 C L 72 16 109/69 93 07/30/23 22:30 69 16 123/66 96 07/30/23 21:55 73 O2 Del Method 07/31/23 07:35 Room Air 07/31/23 06:09 Room Air 07/31/23 00:50 Room Air 07/30/23 22:30 Room Air 07/30/23 21:55 Diagnostic Findings EXAM: MR Abdomen Without Intravenous Contrast, MRCP Protocol CLINICAL HISTORY: Reason for exam: CBD obstruction. TECHNIQUE: Multiplanar magnetic resonance images of the abdomen without intravenous contrast using MRCP protocol. MIP reconstructed images were created and reviewed. COMPARISON: Gallbladder ultrasound on 07/30/2023 FINDINGS: Bile ducts: Small stone in the distal common bile duct. Mild biliary dilatation. Common bile duct measures approximately 8 mm in diameter. Gallbladder: Cholelithiasis. No evidence of gallbladder inflammation. Liver: Hepatomegaly. Pancreas: Atrophy of the pancreas. No ductal dilation. Spleen: Unremarkable. No splenomegaly. Adrenals: Unremarkable. No mass. Kidneys and ureters: Small left renal cyst. No hydronephrosis. Stomach and bowel: Evaluation of the stomach is limited by underdistention. IMPRESSION: 1. Small stone in the distal common bile duct. Mild biliary dilatation. Common bile duct measures approximately 8 mm in diameter. 2. Cholelithiasis. No evidence of gallbladder inflammation. US gallbladder CLINICAL HISTORY: ruq pain TECHNIQUE: Multiple real-time sonographic images of the right upper quadrant were obtained. Comparison: None available at the time of this dictation. FINDINGS: Intrahepatic biliary ductal dilation is noted. No focal mass lesions are seen. No intrahepatic ductal dilatation is seen. Linear hyperechoic foci with posterior shadowing are identified layering dependently within the gallbladder, which are consistent with gallstones. The gallbladder wall is not thickened. There is no pericholecystic fluid present. Mustafa's sign cannot be assessed as the patient received pain medication. The common duct measures 12 cm in diameter at the level of the hepatic artery. Pancreatic duct is dilated measuring 3.2 mm. Mild hydronephrosis is noted kidney. No ascites or free fluid is seen in Vega's pouch. IMPRESSION: 1. Dilation of the intra and extrahepatic biliary ducts as well as the pancreatic duct, suspicious for common bile duct obstruction. 2. Mild hydronephrosis of the right kidney.
[2023-07-31] MEDS: PANTOprazole 40 MG in SYRINGE 0 ML IV SCH (11:01)
--- NOTE | 2023-07-31 20:09 | Hospitalist Progress Note ---
Date of Service July 31, 2023 Assessment & Plan (1) Common bile duct obstruction: Plan: as seen on RUQ u/s and MRCP abnormal LFTs consistent with such with rising total bili, etc. cont IVF cont zosyn IV to cover for possibility of cholangitis in light of leukocytosis, etc clear liquids until MN then NPO for ERCP tomorrow repeat LFTs wnl no evidence of acute cholecystitis at this time appreciate GI consultation at this time (2) Abnormal LFTs: Plan: 2nd to choledocholithiasis (3) Gall stones: Plan: GB on u/s and MRCP with multiple gallstones but no imaging evidence of acute cholecystitis at this time gen surg consult appreciated ultimately will need lap garrett (4) Hypokalemia: Plan: 2nd to HCTZ use replaced resolved mag level wnl (5) Hypertension: Plan: typically on both HCTZ & amlodipine both are on hold and BPs are reasonable at this time (6) Hydronephrosis of right kidney: Plan: seen incidentally on imaging will need dedicated work-up for this u/a wnl no urinary symptoms (7) Tobacco use disorder, continuous: Plan: cont nicoderm patch (8) Migraine: Plan: no headache at this time (9) Dehydration, mild: Plan: improved clinically and lab-vásquez cont IVF NPO at [place] tonight for probable ERCP tomorrow labs in am Plan DVT proph - hold off on chemical DVT proph in light of needing ERCP Admission and Anticipated Discharge Date Admission Date: July 30, 2023 Subjective patient feels MUCH better today no abd pain, nausea or emesis tolerating clears no fevers or chills seen by GI today - ERCP planned for tomorrow denies any other complaints in the last few months may have had 1-2 episodes of slight upper abdominal discomfort Review of Systems Review of Systems: gen - no fevers or chills cv - no chest pain pulm - no dyspnea or cough Physical Exam Physical Exam: gen - NAD, looks good, pleasant eyes - no icterus mouth - MMM heart - RRR, s1 s2, no murmur lungs - CTA b/l abd - soft NT ND BS+; no HSM ext - no edema, pulses 2+ b/l skin - no jaundice Results & Data Results & Data Vital Signs (Past 12 Hours) Vital Signs Temp Pulse Resp BP Pulse Ox O2 Del Method 07/31/23 17:22 36.9 C 72 17 148/87 H 95 Room Air Laboratory Results Laboratory Results - last 24 hr 07/31/23 07/31/23 06:39 06:39 WBC 7.63 RBC 4.41 Hgb 13.3 D Hct 38.9 MCV 88.2 MCH 30.2 MCHC 34.2 RDW Std Deviation 44.4 RDW Coeff of [place] 13.6 Plt Count 301 MPV 10.5 Immature Gran % (Auto) 0.5 Neut % (Auto) 67.6 Lymph % (Auto) 17.6 Elk % (Auto) 10.6 Eos % (Auto) 2.8 Baso % (Auto) 0.9 Neut # (Auto) 5.16 Lymph # (Auto) 1.34 Elk # (Auto) 0.81 H Eos # (Auto) 0.21 Baso # (Auto) 0.07 Immature Gran # (Auto) 0.04 Sodium 142 Potassium 3.9 Chloride 109 H Carbon Dioxide 28 Anion Gap 5 BUN 20 Creatinine 0.98 Est Cr Clr Drug Dosing 57.7 Est GFR ( Amer) 69.7 Est GFR (Non-Af Amer) 60.1 BUN/Creatinine Ratio 20.4 H Glucose 94 Calcium 8.7 Magnesium 2.1 Total Bilirubin 1.9 H AST 378 H ALT 382 H Alkaline Phosphatase 161 H Total Protein 5.9 L D Albumin 3.7 Globulin 2.2 L Albumin/Globulin Ratio 1.7 PG Care Time/CCT Total # of Minutes Spent Total Time Spent with Patient: Total time spent is greater than 50% in coordination of care (as documented) at patient's floor/unit and/or counseling patient: Coding Level of Care Code 51989 SUB INP/OBS CARE 1/25MIN Diagnoses Common bile duct obstruction K83.1 Abnormal LFTs R79.89 Gall stones K80.20 Hypokalemia E87.6 Hypertension I10 Hydronephrosis of right kidney N13.30 Tobacco use disorder, continuous F17.209 Migraine G43.909 Dehydration, mild E86.0
[2023-07-31] MEDS: traZODone HCL 50 MG TAB PO SCH (21:49)
[2023-08-01] MEDS: PIPERACILLIN/TAZOBACTAM 4.5 GM in DEXTROSE 5% MINI-B 100 ML IV SCH ×3 (06:08→21:53)
[2023-08-01] MEDS: NSS + 20MEQ KCL 20 MEQ/1,000 ML BAG IV SCH ×3 (06:09→20:11)
[2023-08-01 07:42] LABS: Basophils # (auto) 0.07 K/uL (0.00-0.20); Eosinophils % (auto) 2.7 %; Hematocrit (blood only) 40.2 % (37.0-47.0); Hemoglobin 13.7 g/dl (12.0-16.0); Immature Granulocytes # (auto) 0.02 K/uL (0.01-0.20); Immature Granulocytes % (auto) 0.3 %; Lymphocytes % (auto) 19.2 %; Mean Corpuscular Hgb Conc 34.1 g/dL (32.0-36.0); Mean Corpuscular Volume 88.2 fL (80.0-100.0); Mean Platelet Volume 10.5 fL (9.4-12.4); Monocytes # (auto) 0.68 K/uL (0.11-0.59); Monocytes % (auto) 9.3 %; Neutrophils # (auto) 4.94 K/uL (1.40-6.50); Neutrophils % (auto) 67.5 %; Platelet Count 299 K/uL (130-400); RDW Coefficient of Variation 13.7 % (11.5-14.5); RDW Standard Deviation 44.7 fL (36.4-46.3); Red Blood Count 4.56 M/uL (4.20-5.40); White Blood Count 7.31 K/ul (4.8-10.8)
[2023-08-01 07:58] LABS: Albumin Globulin Ratio 1.6 (0.9-2); Albumin Level 3.9 gm/dl (3.4-5.0); BUN Creatinine Ratio 12.2 (10-20); Bilirubin,Total 0.9 mg/dl (0.2-1.0); Calcium 8.9 mg/dl (8.6-10.3); Creatinine Clr Calc Pharmacy 76.5 ml/min; Est GFR (African American) 97.8 ml/min; Est GFR (Non-African American) 84.4 ml/min; Globulin 2.4 gm/dl (2.5-4.0); Total Protein 6.3 gm/dl (6.0-8.3)
--- NOTE | 2023-08-01 08:32 | Communication Note ---
Date of Service: August 01, 2023 Arthur SCOTTIE was asked to help arrange ERCP. Notes she has had persistent abd pain, inability to tolerate PO intake with nausea/vomiting. LFTs remain dominick vated, imaging concerning for CBD stone. Risks/benefits and alternatives to ERCP were discussed. She verbalizd understanding. She is agreeable to ERCP today. Please continue ABX, anti-emetics PRN, analgesia PRN. Strict NPO. We appreciate assistance in the management of any serological abnormality and corrections to include: hemoglobin >7, INR <2, platelets >50,000, potassium levels >3.5 but <5.3, and sodium levels within 5 points of the reference range prior to endoscopic evaluation. Thank you for allowing us to participate in the care of this patient. Please call with any acute changes, questions or concerns. Please see addendum below with additional recommendation from my supervising physician.
[2023-08-01] MEDS: PANTOprazole 40 MG in SYRINGE 0 ML IV SCH (10:32)
[2023-08-01] MEDS: NICOTINE 14 MG/24 HR PATCH TD SCH (10:35)
[2023-08-01] MEDS ORDERED: ACETAMINOPHEN 1,000 MG/100 ML VIAL IV STA (10:38)
[2023-08-01] MEDS ORDERED: DEXAMETHASONE SOD INJ 4 MG/ML VIAL ONE (11:37)
[2023-08-01] MEDS ORDERED: MIDAZOLAM HCL 1 MG/ML 2ML VIAL ONE (11:37)
[2023-08-01] MEDS ORDERED: fentaNYL citrate PF 100 MCG/2 ML VIAL ONE (11:37)
[2023-08-01] MEDS ORDERED: PROPOFOL IV EMULSION 10 MG/ML 20 ML VIAL IV ONE ×2 (11:37→13:39)
[2023-08-01] MEDS ORDERED: LIDOCAINE 2% 2 ML VIAL/AMP(20MG/ML) INFIL ONE ×2 (11:37→12:27)
[2023-08-01] MEDS ORDERED: ONDANSETRON INJ 2 MG/ML 2 ML VIAL ONE (11:37)
--- NOTE | 2023-08-01 12:40 | History & Physical Bridge Note ---
Date of Service August 01, 2023 History & Physical Bridge Note I have examined the patient, reviewed the History & Physical and in the interval since the performance of the History & Physical I have noted the following changes of clinical significance: no changes noted Risks of ERCP discussed to include bleeding, infection, perforation, pain, failed cannulation and pancreatitis.
[2023-08-01] MEDS ORDERED: LACTATED RINGER'S 1,000 ML IV SCH (12:45)
[2023-08-01] MEDS ORDERED: INDOMETHACIN 50 MG SUPP PR ONE ×2 (13:12→13:13)
[2023-08-01] MEDS ORDERED: fentaNYL citrate PF 100 MCG/2 ML VIAL IV PRN (13:18)
[2023-08-01] MEDS ORDERED: ATROPINE SULFATE 0.1 MG/ML 10ML SYR IV PRN (13:18)
[2023-08-01] MEDS ORDERED: ePHEDrine sulfate 50 MG/ML AMP IV PRN (13:18)
[2023-08-01] MEDS ORDERED: ONDANSETRON INJ 2 MG/ML 2 ML VIAL IV PRN (13:18)
--- NOTE | 2023-08-01 13:18 | Anesthesiology Consultation ---
Date of Service August 01, 2023 Assessment & Plan Chart Review Chart Review: Acceptable Risk for Surgery and Patient NOT seen in Pre Admission Testing Consults Requested none ASA ASA2 Proposed Anesthesia Anesthesia Type: MAC Risk / Benefits Reviewed With: PT / POA / Parent / Guardian, Accepts Plan and Informed Consent Obtained History Surgery Operation Date: 08/01/23 09:00 Proposed Procedures p Endoscopic Retrograde Cholangiopancreatogram - Kobi Reid, DO Height/Weight Height: 5 ft 4 in Weight: 79.9 kg Allergies Allergy/AdvReac Type Severity Reaction Status Date / Time No Known Drug Allergies Allergy NKDA Verified 07/30/23 22:27 Medications Home Medications Medication Instructions Recorded Confirmed Last Taken sumatriptan succinate 100 mg tablet 100 mg PO UD PRN Migraine Headache 06/09/22 07/30/23 Unknown #10 tabs trazodone 50 mg tablet 50 mg PO HS #90 tabs 09/07/22 07/30/23 Unknown hydrochlorothiazide 25 mg tablet 25 mg PO DAILY #90 tabs 10/28/22 07/30/23 Unknown amlodipine 10 mg tablet 10 mg PO DAILY #90 tabs 01/24/23 07/30/23 Unknown kxzpstz-myzegbuvxcfjb-rzaftizx 250 2 tab PO DIRECTED PRN Migraine 07/30/23 07/30/23 Unknown mg-250 mg-65 mg tablet (Excedrin Headache Migraine) Active Medications Generic Name Dose Route Start Last Admin Trade Name Freq PRN Reason Stop Dose Admin Potassium Chloride/Sodium Chloride 20 meq in 1,000 mls @ 100 mls/hr 07/30/23 21:15 08/01/23 12:15 Normal Saline W/20 Meq Kcl IV 08/29/23 21:14 0 mls/hr .Q10H LEAH Infusion Protocol Pantoprazole Sodium 40 mg/ 10 mls @ 5 mls/min 07/31/23 11:00 08/01/23 10:32 Syringe IV 08/30/23 10:59 5 mls/min DAILY@1100 LEAH Administration Piperacillin Sod/Tazobactam 100 mls @ 25 mls/hr 07/31/23 02:00 08/01/23 10:45 Sod 4.5 gm/ Dextrose IV 08/10/23 01:59 Infused Q8H LEAH Infusion Protocol Lactated Ringer's 1,000 mls @ 15 mls/hr 08/01/23 12:45 10/16/23 13:11 Lr IV 08/31/23 12:44 Infused .Q24H LEAH Infusion Miscellaneous 1 each 07/31/23 08:59 08/01/23 10:35 Remove Nicoderm Patch N/A 08/30/23 08:58 Not Given DAILY@0859 LEAH Nicotine 14 mg 07/31/23 09:00 08/01/23 10:35 Nicotine 14 Mg/24 Hr Patch TD 08/30/23 08:59 Not Given QAM LEAH Trazodone HCl 50 mg 07/31/23 21:00 07/31/23 21:49 Trazodone Hcl 50 Mg Tab PO 08/30/23 20:59 50 mg HS LEAH Administration NPO Date Last Intake of Fluids: 07/31/23 Time Last Intake of Fluids: 21:00 Date Last Intake of Solids: 07/30/23 Past Medical History Medical History (Updated 07/31/23 @ 09:08 by Abe Ferrara Jr, MD) Alopecia areata Choledocholithiasis Hypertension Insomnia Migraine Exercise / Class Metabolic Activity II 4-5 Yardwork/Stairs/Walk up hill Past Family History Family History Aunt Family hx of colon cancer Brother Cardiac disorder Father Cardiac disorder Myocardial infarction Thyroid disease Liver cancer angiosarcoma, due to work place exposure Mother Cardiac disorder Myocardial infarction Thyroid disease Hypertension Sister No problems noted. Daughter No problems noted. Daughter Drug abuse Other No family history of adverse response to anesthesia Denies family history of Ovarian cancer Prostate cancer Breast cancer Past Surgical History Surgical History History of bilateral cataract extraction History of bilateral tubal ligation History of section x3 History of colonoscopy History of dilatation and curettage History of surgical procedure on mouth dental implant History of tonsillectomy History of wisdom tooth extraction Past Anesthesia History No Hx of Anesthesia Complications and No Family Hx of Anesthesia Complications History of PONV No Hx of PONV and No Hx of Motion Sickness Social History Smoking Status: Current every day smoker tobacco type: cigarettes Smoking cigarettes per day: 1/2 pack to 1 pack Do You Dip or Chew Tobacco: No Hx Alcohol Use: No Hx Substance Use: No substance use type: does not use Physical Exam Vital Signs Last Vital Signs Temp 36.8 C 08/01/23 12:27 Pulse 70 08/01/23 12:27 Resp 18 08/01/23 12:27 BP 164/90 H 08/01/23 12:27 Pulse Ox 96 08/01/23 12:27 O2 Del Method Room Air 08/01/23 12:27 ENMT Mouth: no dentition abnormality Thyromental Distance: > or= 3.5 Finger Breadths Mallampati Class: II Neck normal visual inspection Respiratory normal respiratory effort Auscultation: lungs clear to auscultation bilaterally Cardiovascular Rate/Rhythm: regular rate and regular rhythm Psychiatric Orientation: alert Testing Laboratory Results 08/01/23 07:01 08/01/23 07:01 Urine Color Yellow 07/30/23 19:40 Urine Appearance Clear (Clear) 07/30/23 19:40 Urine pH 7.0 (4.5-7.5) 07/30/23 19:40 Ur Specific [place] 1.012 (1.000-1.030) 07/30/23 19:40 Urine Protein Negative (Negative) 07/30/23 19:40 Urine Glucose (UA) Negative (Negative) 07/30/23 19:40 Urine Ketones Trace (Negative) H 07/30/23 19:40 Urine Nitrite Negative (Negative) 07/30/23 19:40 Ur Leukocyte Esterase Negative (Negative) 07/30/23 19:40
[2023-08-01] MEDS ORDERED: GLYCOPYRROLATE 0.2 MG/ML VIAL ONE (13:26)
[2023-08-01] MEDS ORDERED: LABETALOL HCL IV 5 MG/ML 20ML IV ONE (13:42)
--- NOTE | 2023-08-01 13:53 | GI REPORT ---
Patient Name: Sonia Banegas Procedure Date: 08/01/2023 12:51 PM Date of : 1955 Admit Type: Inpatient Age: 68 Gender: Female Attending MD: Kobi Reid DO, Procedure: ERCP Providers: Kobi Reid DO Referring MD: Evelio Kumar, Edy Frias MD Indications: Abdominal pain of suspected biliary origin, Abnormal MRCP, Elevated liver enzymes Medicines: General Anesthesia Complications: No immediate complications. Estimated blood loss: Minimal. Estimated Blood Loss: Estimated blood loss was minimal. Procedure: Pre-Anesthesia Assessment: - Prior to the procedure, a History and Physical was performed, and patient medications, allergies and sensitivities were reviewed. The patient's tolerance of previous anesthesia was reviewed. - The risks and benefits of the procedure and the sedation options and risks were discussed with the patient. All questions were answered and informed consent was obtained. - Patient identification and proposed procedure were verified prior to the procedure by the physician, the nurse and the cartoon designer. The procedure was verified in the procedure room. - Pre-procedure physical examination revealed no contraindications to sedation. - ASA Grade Assessment: III - A patient with severe systemic disease. - After reviewing the risks and benefits, the patient was deemed in satisfactory condition to undergo the procedure. - The anesthesia plan was to use general anesthesia. - Immediately prior to administration of medications, the patient was re-assessed for adequacy to receive sedatives. - The heart rate, respiratory rate, oxygen saturations, blood pressure, adequacy of pulmonary ventilation, and response to care were monitored throughout the procedure. - The physical status of the patient was re-assessed after the procedure. After obtaining informed consent, the scope was passed under direct vision. Throughout the procedure, the patient's blood pressure, pulse, and oxygen saturations were monitored continuously. The Duodenoscope was introduced through the mouth, and advanced to the duodenum and used to inject contrast into the bile duct. The ERCP was accomplished without difficulty. The patient tolerated the procedure well. Findings: The silverware supervisor film was normal. The esophagus was successfully intubated under direct vision without detailed examination of the pharynx, larynx, and associated structures, and upper GI tract. The upper GI tract was grossly normal. The major papilla was normal. The bile duct was deeply cannulated with the short-nosed traction sphincterotome and guidewire. Contrast was injected. I personally interpreted the bile duct images. Contrast extended to the entire biliary tree. The lower third of the main bile duct contained filling defect(s) thought to be a stone. The main bile duct was moderately dilated. The largest diameter was 10 mm, the cystic duct appeared to be patent with prompt filling of the gallbladder. Biliary sphincterotomy was made with a Fusion OMNI sphincterotome using ERBE electrocautery. Minor bleeding from the sphincterotomy was successfully treated (please see below). To discover objects, the biliary tree was swept with a 12 mm balloon starting at the bifurcation. One pale pigmented stone was removed. No stones remained. Due to persistent bleeding from the sphinctertomy site, one 10 Fr by 8 cm covered metal stent was placed 7.5 cm into the common bile duct ([place] Viabil, [id number], [id number]) to tamponade the sphincterotomy site. Bile flowed through the stent. The stent was in good position. The spincterotomy site was successfully injected with 2.5 mL of 1:10,000 solution of epinephrine through a Crammer Catheter resulting in hemostasis. The endoscope was withdrawn from the patient. The total fluoroscopy exposure time was 14 seconds. Indomethacin 100 mg was given via suppository to decrease the risk of post-ERCP pancreatitis (PEP). Impression: - A filling defect consistent with a stone was seen on the cholangiogram. - The entire main bile duct was moderately dilated. - Choledocholithiasis was found. Complete removal was accomplished by biliary sphincterotomy and balloon extraction. - One covered metal stent was placed into the common bile duct due to post-sphincterotomy bleeding. - Indomethacin given to decrease risk of post-ERCP pancreatitis. Recommendation: - Avoid aspirin and nonsteroidal anti-inflammatory medicines for 1 week. - Clear liquid diet today. - Use broad spectrum antibiotics for 10 days. - Repeat ERCP in 6 weeks to remove stent. - Cholecystectomy per General Surgery. Kobi Reid D.O. Kobi Reid DO 08/01/2023 1:53:36 PM This report has been signed electronically. Note Initiated On: 08/01/2023 12:51 PM Number of Addenda: 0 I attest to the content of the Intraoperative Record and orders documented therein, exceptions below {[id number]}
--- NOTE | 2023-08-01 13:54 | Post Operative Brief Note ---
Immediate Post Op Note v1 Date of Surgery August 01, 2023 Pre & Post Diagnosis Operation Date: 08/01/23 09:00 Pre-Op Diagnosis: CBD OBSTRUCTION, ABNORMAL LFT'S Post-Op Diagnosis: CBD stone I identified the patient and participated in the time-out.: Yes Procedure Operation Date: 08/01/23 09:00 Actual Procedures p Endoscopic Retrograde Cholangiopancreato(Not Applicable) - Kobi Reid DO Surgeon Kobi Reid DO Multimedia Teacher none Estimated Blood Loss 10 Findings Consistent with Post-Op Diagnosis
--- NOTE | 2023-08-01 13:56 | Communication Note ---
Date of Service: August 01, 2023 Patient underwent ERCP this afternoon. The procedure was notable for a stone in the distal common bile duct. The patient had a stone removed after biliary sphincterotomy was performed. Due to persistent bleeding from sphincterotomy site we placed a covered metal stent and treated the sphincterotomy site with 1- 10,000 epinephrine. This resulted in cessation from bleeding. Recommendations Patient may have clear liquid diet today Antibiotic coverage for total of 10 days Avoid use of nonsteroidals for 1 week Repeat ERCP for stent removal in 6 to 8 weeks Cholecystectomy per general surgery. Please call the GI service with any additional questions or concerns
--- NOTE | 2023-08-01 14:08 | Fluoroscopy Report ---
[place] ERCP biliary ductal CLINICAL HISTORY: ERCP COMPARISON STUDY: MRCP 07/30/2023 FLUOROSCOPY TIME: 14 seconds FLUOROSCOPY IMAGES: 7 EXPOSURE DOSE: 4.05 mGy FINDINGS: Endoscope is present within the duodenum. There is cannulation of the common bile duct with retrograde injection of contrast. No significant biliary ductal dilation or definite filling defects identified. Partially opacified gallbladder. IMPRESSION: Fluoroscopic assistance as above. ACT 112: Negative or not required by law. Electronically signed by: Wil Snell M.D. 08/01/2023 2:07 PM
--- NOTE | 2023-08-01 14:21 | Surgery Progress Note ---
Date of Service August 01, 2023 Assessment & Plan (1) Choledocholithiasis: Plan: t. bili and lfts improving leukocytosis resolved ERCP today (2) Gall stones: Plan Discussed with patient option of outpatient cholecystectomy vs inpatient and possible combined case. Will discuss with GI for timing of ERCP today. Possibly plan for lap garrett this admission vs outpatient with Dr. Frias Continue current medical management follow labs Discussed with Dr. Frias who agrees with above. Admission and Anticipated Discharge Date Admission Date: July 30, 2023 Subjective feeling good, no abdominal pain, no n,v tolerating clear liquids without pain going for ERCP today Physical Exam Constitutional: WD/WN, vitals as above cooperative and comfortable; no acute distress and not ill appearing Respiratory: normal respiratory effort Gastrointestinal (Abdomen): Inspection/Auscultation: abdomen normal to inspection and + abdominal surgical scar (transverse abdominoplasty scar); abdomen not distended Percussion/Palpation: abdomen soft; abdomen nontender, no guarding, abdomen not rigid and abdomen not firm Skin: no rashes, warm and dry no jaundice Results & Data Vital Signs (Past 12 Hours) Vital Signs Temp Pulse Pulse Resp BP BP Pulse Ox 08/01/23 14:10 36.5 C 63 18 175/94 H 95 08/01/23 14:00 66 15 148/77 H 99 08/01/23 13:50 36.0 C L 67 12 132/76 97 08/01/23 12:27 36.8 C 70 18 164/90 H 96 08/01/23 07:42 36.9 C 71 16 143/87 H 96 O2 Del Method O2 Flow Rate 08/01/23 14:10 Room Air 08/01/23 14:00 Oxymask 4 08/01/23 13:50 Oxymask 4 08/01/23 12:27 Room Air 08/01/23 07:42 Room Air Laboratory Results 08/01/23 08/01/23 Range/Units 07:01 07:01 WBC 7.31 (4.8-10.8) K/ul RBC 4.56 (4.20-5.40) M/uL Hgb 13.7 (12.0-16.0) g/dl Hct 40.2 (37.0-47.0) % MCV 88.2 (80.0-100.0) fL MCH 30.0 (25.0-34.0) pg MCHC 34.1 (32.0-36.0) g/dL RDW Std Deviation 44.7 (36.4-46.3) fL RDW Coeff of [place] 13.7 (11.5-14.5) % Plt Count 299 (130-400) K/uL MPV 10.5 (9.4-12.4) fL Immature Gran % (Auto) 0.3 % Neut % (Auto) 67.5 % Lymph % (Auto) 19.2 % [place] % (Auto) 9.3 % Eos % (Auto) 2.7 % Baso % (Auto) 1.0 % Neut # (Auto) 4.94 (1.40-6.50) K/uL Lymph # (Auto) 1.40 (1.20-3.40) K/uL [place] # (Auto) 0.68 H (0.11-0.59) K/uL Eos # (Auto) 0.20 (0.00-0.50) K/uL Baso # (Auto) 0.07 (0.00-0.20) K/uL Immature Gran # (Auto) 0.02 (0.01-0.20) K/uL Sodium 140 (136-145) mmol/L Potassium 4.0 (3.5-5.1) mmol/L Chloride 111 H (98-107) mmol/L Carbon Dioxide 23 (21-32) mmol/L Anion Gap 6 (3-11) BUN 9 (6-23) mg/dl Creatinine 0.74 (0.6-1.2) mg/dl Est Cr Clr Drug Dosing 76.5 ml/min Est GFR ( Amer) 97.8 ml/min Est GFR (Non-Af Amer) 84.4 ml/min BUN/Creatinine Ratio 12.2 (10-20) Glucose 101 H (70-99(Fasting)) mg/dl Calcium 8.9 (8.6-10.3) mg/dl Magnesium 2.0 (1.7-2.4) mg/dl Total Bilirubin 0.9 D (0.2-1.0) mg/dl AST 137 H (13-39) U/L ALT 261 H (7-52) U/L Alkaline Phosphatase 149 H (34-104) U/L Total Protein 6.3 (6.0-8.3) gm/dl Albumin 3.9 (3.4-5.0) gm/dl Globulin 2.4 L (2.5-4.0) gm/dl Albumin/Globulin Ratio 1.6 (0.9-2)
--- NOTE | 2023-08-01 14:47 | Anesthesiology Progress Note ---
Date of Service August 01, 2023 Anesthesia Post Procedure Vital Signs Vital Signs: Temp Pulse Pulse Resp BP BP Pulse Ox 08/01/23 14:25 36.8 C 61 16 151/81 H 97 08/01/23 14:10 36.5 C 63 18 175/94 H 95 08/01/23 14:00 66 15 148/77 H 99 08/01/23 13:50 36.0 C L 67 12 132/76 97 08/01/23 12:27 36.8 C 70 18 164/90 H 96 08/01/23 07:42 36.9 C 71 16 143/87 H 96 07/31/23 21:09 36.6 C 70 16 156/79 H 96 07/31/23 17:22 36.9 C 72 17 148/87 H 95 O2 Del Method O2 Flow Rate 08/01/23 14:25 Room Air 08/01/23 14:10 Room Air 08/01/23 14:00 Oxymask 4 08/01/23 13:50 Oxymask 4 08/01/23 12:27 Room Air 08/01/23 07:42 Room Air 07/31/23 21:09 Room Air 07/31/23 17:22 Room Air Pain Intensity Abdomen: Pain Intensity: 8 Transfer of Care Handoff Completed per policy Notes Mental Status: alert / awake / arousable Patient Amnestic to Procedure: Yes Nausea / Vomiting: adequately controlled Pain: adequately controlled Airway Patency, RR, SpO2: stable & adequate BP & HR: stable & adequate Hydration State: stable & adequate Anesthetic Complications: no major complications apparent
--- NOTE | 2023-08-01 15:32 | Hospitalist Progress Note ---
Date of Service August 01, 2023 Assessment & Plan (1) Common bile duct obstruction: Plan: s/p ERCP today by Arthur Pacheco GI removal of 1 CBD stone no purulent bile present thus no cholangitis metal stent placed due to mild bleeding from sphincterotomy site clear liquids resumed post-ERCP repeat LFTs wnl repeat CBC in am due to biliary tract bleeding during the procedure cont zosyn; can change to cipro/flagyl tomorrow if tolerating diet no evidence of acute cholecystitis at this time; urgent lap garrett not needed appreciate GI consultation and assistance additional recommendations from GI - * antibiotics for total of 10 days * avoid use of nonsteroidals for 1 week * Repeat ERCP for stent removal in 6 to 8 weeks (2) Abnormal LFTs: Plan: 2nd to choledocholithiasis improving LFTs today repeat LFTs am (3) Gall stones: Plan: RUQ u/s and MRCP with multiple gallstones but no imaging evidence of acute cho lecystitis at this time gen surg consult appreciated ultimately will need lap garrett in near future as outpatient (4) Hypokalemia: Plan: 2nd to HCTZ use replaced resolved mag level wnl (5) Hypertension: Plan: typically on both HCTZ & amlodipine both were on hold BPs now rising resume amlodipine in am cont to hold HCTZ (6) Hydronephrosis of right kidney: Plan: seen incidentally on imaging will need dedicated work-up for this -- refer to urology in the future u/a wnl no urinary symptoms need to inform patient about this (7) Tobacco use disorder, continuous: Plan: cont nicoderm patch (8) Migraine: Plan: no headache at this time (9) Dehydration, mild: Plan: resolved if she tolerates clears for dinner & is drinking fluids well can d/c the fluids (10) Bronchitis: Plan: recent bronchitis has crackles on exam (bases) -- check a cxr Plan DVT proph - holding chemical DVT proph in light of ERCP attempted to call pt's daughter at # listed in chart this evening Admission and Anticipated Discharge Date Admission Date: July 30, 2023 Subjective saw patient post-ERCP she was feeling well no abd pain, nausea or emesis has appetite - ready for nourishment discussed ERCP findings and placement of stent pt reports that 4-6 weeks ago she came down with bronchitis still had cough recently Review of Systems Review of Systems: gen - no fevers or chills cv - no chest pain pulm - cough but no dyspnea GI - no pain Physical Exam Physical Exam: gen - NAD, looks very good eyes - no icterus mouth - MMM heart - RRR, s1 s2, no murmur lungs - CTA b/l except mild rales bases (dry); with coughing some of the rales disappear abd - soft NT ND BS+; no HSM ext - no edema, pulses 2+ b/l skin - no jaundice Results & Data Results & Data Vital Signs (Past 12 Hours) Vital Signs Temp Pulse Pulse Resp BP BP Pulse Ox 08/01/23 15:31 36.9 C 66 16 166/82 H 94 08/01/23 14:48 61 16 190/96 H 93 08/01/23 14:25 36.8 C 61 16 151/81 H 97 08/01/23 14:10 36.5 C 63 18 175/94 H 95 08/01/23 14:00 66 15 148/77 H 99 08/01/23 13:50 36.0 C L 67 12 132/76 97 08/01/23 12:27 36.8 C 70 18 164/90 H 96 08/01/23 07:42 36.9 C 71 16 143/87 H 96 O2 Del Method O2 Flow Rate 08/01/23 15:31 Room Air 08/01/23 14:48 Room Air 08/01/23 14:25 Room Air 08/01/23 14:10 Room Air 08/01/23 14:00 Oxymask 4 08/01/23 13:50 Oxymask 4 08/01/23 12:27 Room Air 08/01/23 07:42 Room Air Laboratory Results Laboratory Results - last 24 hr 08/01/23 08/01/23 07:01 07:01 WBC 7.31 RBC 4.56 Hgb 13.7 Hct 40.2 MCV 88.2 MCH 30.0 MCHC 34.1 RDW Std Deviation 44.7 RDW Coeff of [place] 13.7 Plt Count 299 MPV 10.5 Immature Gran % (Auto) 0.3 Neut % (Auto) 67.5 Lymph % (Auto) 19.2 [place] % (Auto) 9.3 Eos % (Auto) 2.7 Baso % (Auto) 1.0 Neut # (Auto) 4.94 Lymph # (Auto) 1.40 [place] # (Auto) 0.68 H Eos # (Auto) 0.20 Baso # (Auto) 0.07 Immature Gran # (Auto) 0.02 Sodium 140 Potassium 4.0 Chloride 111 H Carbon Dioxide 23 Anion Gap 6 BUN 9 Creatinine 0.74 Est Cr Clr Drug Dosing 76.5 Est GFR ( Amer) 97.8 Est GFR (Non-Af Amer) 84.4 BUN/Creatinine Ratio 12.2 Glucose 101 H Calcium 8.9 Magnesium 2.0 Total Bilirubin 0.9 D AST 137 H ALT 261 H Alkaline Phosphatase 149 H Total Protein 6.3 Albumin 3.9 Globulin 2.4 L Albumin/Globulin Ratio 1.6 PG Care Time/CCT Total # of Minutes Spent Total Time Spent with Patient: Total time spent is greater than 50% in coordination of care (as documented) at patient's floor/unit and/or counseling patient: Coding Level of Care Code 36720 SUB INP/OBS CARE 2/35MIN Diagnoses Common bile duct obstruction K83.1 Abnormal LFTs R79.89 Gall stones K80.20 Hypokalemia E87.6 Hypertension I10 Hydronephrosis of right kidney N13.30 Tobacco use disorder, continuous F17.209 Migraine G43.909 Dehydration, mild E86.0 Bronchitis J40
--- NOTE | 2023-08-01 18:24 | XRay Report ---
XR chest 2V PA/lateral HISTORY: 68 years-old Female b/l basilar rales acute shortness of breath COMPARISON: 07/30/2023 TECHNIQUE: PA and lateral views of the chest FINDINGS: Cardiomediastinal and hilar silhouettes are within normal limits. No pneumothorax, pleural effusion, airspace consolidation or pulmonary edema. Degenerative changes of the shoulders and spine. Cholecyst ectomy. IMPRESSION: No acute process. ACT 112: Negative or not required by law. The above report was generated using voice recognition software. It may contain grammatical, syntax o r spelling errors. Electronically signed by: Wil Snell M.D. 08/01/2023 6:22 PM
[2023-08-01] MEDS: traZODone HCL 50 MG TAB PO SCH (21:53)
[2023-08-02] MEDS: PIPERACILLIN/TAZOBACTAM 4.5 GM in DEXTROSE 5% MINI-B 100 ML IV SCH (05:45)
--- NOTE | 2023-08-02 06:29 | Electrocardiogram Report ---
Test Reason : Blood Pressure : / mmHG Vent. Rate : 080 BPM Atrial Rate : 080 BPM P-R Int : 158 ms QRS Dur : 082 ms QT Int : 408 ms P-R-T Axes : 063 064 058 degrees QTc Int : 470 ms Normal sinus rhythm Normal ECG No previous ECGs available Confirmed by Mychal Temple ([id number]) on 08/02/2023 6:28:38 AM Referred By: REFERRED SELF Confirmed By:Mychal Temple
[2023-08-02 07:33] LABS: Basophils # (auto) 0.05 K/uL (0.00-0.20); Basophils % (auto) 0.6 %; Eosinophils # (auto) 0.12 K/uL (0.00-0.50); Eosinophils % (auto) 1.4 %; Hematocrit (blood only) 39.6 % (37.0-47.0); Immature Granulocytes # (auto) 0.04 K/uL (0.01-0.20); Immature Granulocytes % (auto) 0.5 %; Lymphocytes # (auto) 1.22 K/uL (1.20-3.40); Mean Corpuscular Hemoglobin 29.7 pg (25.0-34.0); Mean Corpuscular Hgb Conc 32.8 g/dL (32.0-36.0); Mean Corpuscular Volume 90.6 fL (80.0-100.0); Mean Platelet Volume 10.4 fL (9.4-12.4); Monocytes # (auto) 0.54 K/uL (0.11-0.59); Monocytes % (auto) 6.2 %; Neutrophils # (auto) 6.74 K/uL (1.40-6.50); Neutrophils % (auto) 77.3 %; Platelet Count 302 K/uL (130-400); RDW Coefficient of Variation 13.6 % (11.5-14.5); RDW Standard Deviation 45.3 fL (36.4-46.3); Red Blood Count 4.37 M/uL (4.20-5.40); White Blood Count 8.71 K/ul (4.8-10.8)
[2023-08-02 08:01] LABS: Albumin Globulin Ratio 1.4 (0.9-2); Albumin Level 3.9 gm/dl (3.4-5.0); BUN Creatinine Ratio 19.4 (10-20); Bilirubin,Total 1.2 mg/dl (0.2-1.0); Creatinine Clr Calc Pharmacy 78.6 ml/min; Est GFR (African American) 101.1 ml/min; Est GFR (Non-African American) 87.3 ml/min; Globulin 2.8 gm/dl (2.5-4.0); Potassium 4.2 mmol/L (3.5-5.1); Total Protein 6.7 gm/dl (6.0-8.3)
--- NOTE | 2023-08-02 08:34 | Gastroenterology Progress Note ---
Date of Service August 02, 2023 Assessment & Plan (1) Choledocholithiasis: Plan: 68 year old female with elevated LFTs, CBD stones on imaging s/p ERCP for stone extraction, biliary sphincterotomy was performed, a covered metal stent was placed due to bleeding - H&H stable - Avoid aspirin and nonsteroidal anti-inflammatory medicines for 1 week - Clear liquid diet today, no GI contraindication to diet - Use broad spectrum antibiotics for 10 days - Repeat ERCP in 6 weeks to remove stent - Cholecystectomy per General Surgery Recall as needed. Will sign off. Thank you for allowing us to participate in the care of this patient. Please call with any acute changes, questions or concerns. Please see addendum below with additional recommendation from my supervising physician. Admission and Anticipated Discharge Date Admission Date: July 30, 2023 Supervising Physician Co-Signing Physician Notes I have personally seen and examined the patient with ALVINO Patel. Her note reflects my exam and findings. I agree with her impression and plan. Feeling well s/p ERCP. [facility] as per surgical team. Toni Gaines M.D. Subjective S/P ERCP. Feeling well. Abd pain has improved. No nausea, vomiting. Was eating clears this AM on arrival to her room. ERCP 2022: - A filling defect consistent with a stone was seen on the cholangiogram. - The entire main bile duct was moderately dilated. - Choledocholithiasis was found. Complete removal was accomplished by biliary sphincterotomy and balloon extraction. - One covered metal stent was placed into the common bile duct due to post-sphincterotomy bleeding. - Indomethacin given to decrease risk of post-ERCP pancreatitis. Review of Systems Review of Systems: All systems reviewed & are unremarkable except as noted in HPI & below Physical Exam Constitutional: WD/WN, vitals as above Respiratory: normal respiratory effort Cardiovascular: Rate/Rhythm: regular rate and regular rhythm Gastrointestinal (Abdomen): normal bowel sounds, soft, nontender, no hepatosplenomegaly Skin: no rashes, warm and dry Results & Data Vital Signs (Past 12 Hours) Vital Signs Temp Pulse Resp BP Pulse Ox O2 Del Method 08/02/23 07:54 36.9 C 64 18 125/82 96 Room Air 08/02/23 02:54 36.7 C 58 L 18 129/73 96 Room Air 08/01/23 21:43 36.8 C 56 L 18 143/83 H 95 Room Air Laboratory Results 08/02/23 08/02/23 Range/Units 07:07 07:07 WBC 8.71 (4.8-10.8) K/ul RBC 4.37 (4.20-5.40) M/uL Hgb 13.0 (12.0-16.0) g/dl Hct 39.6 (37.0-47.0) % MCV 90.6 (80.0-100.0) fL MCH 29.7 (25.0-34.0) pg MCHC 32.8 (32.0-36.0) g/dL RDW Std Deviation 45.3 (36.4-46.3) fL RDW Coeff of [place] 13.6 (11.5-14.5) % Plt Count 302 (130-400) K/uL MPV 10.4 (9.4-12.4) fL Immature Gran % (Auto) 0.5 % Neut % (Auto) 77.3 % Lymph % (Auto) 14.0 % [place] % (Auto) 6.2 % Eos % (Auto) 1.4 % Baso % (Auto) 0.6 % Neut # (Auto) 6.74 H (1.40-6.50) K/uL Lymph # (Auto) 1.22 (1.20-3.40) K/uL [place] # (Auto) 0.54 (0.11-0.59) K/uL Eos # (Auto) 0.12 (0.00-0.50) K/uL Baso # (Auto) 0.05 (0.00-0.20) K/uL Immature Gran # (Auto) 0.04 (0.01-0.20) K/uL Sodium 137 (136-145) mmol/L Potassium 4.2 (3.5-5.1) mmol/L Chloride 107 (98-107) mmol/L Carbon Dioxide 26 (21-32) mmol/L Anion Gap 4 (3-11) BUN 14 (6-23) mg/dl Creatinine 0.72 (0.6-1.2) mg/dl Est Cr Clr Drug Dosing 78.6 ml/min Est GFR ( Amer) 101.1 ml/min Est GFR (Non-Af Amer) 87.3 ml/min BUN/Creatinine Ratio 19.4 (10-20) Glucose 114 H (70-99(Fasting)) mg/dl Calcium 9.0 (8.6-10.3) mg/dl Total Bilirubin 1.2 H (0.2-1.0) mg/dl AST 91 H (13-39) U/L ALT 209 H (7-52) U/L Alkaline Phosphatase 158 H (34-104) U/L Total Protein 6.7 (6.0-8.3) gm/dl Albumin 3.9 (3.4-5.0) gm/dl Globulin 2.8 (2.5-4.0) gm/dl Albumin/Globulin Ratio 1.4 (0.9-2)
[2023-08-02] MEDS ORDERED: amLODIPine BESYLATE 5 MG TAB PO SCH (09:00)
[2023-08-02] MEDS: NICOTINE 14 MG/24 HR PATCH TD SCH (09:25)
--- NOTE | 2023-08-02 11:46 | Discharge Summary ---
Date of Service August 02, 2023 Admission HPI Per Admitting Provider The patient is a 68-year-old female with past medical history including hypertension, migraine headache, tobacco use disorder, and insomnia. She presents to the emergency department with symptoms as noted above. Significant abnormal laboratories: WBC 12.12, hemoglobin 16.4, hematocrit 46.4, platelets 3.4, glucose 124, total bilirubin 1.5, AST 231, ALT 205, alk phos 190 X-ray chest negative Gallbladder ultrasound showed dilation of intra and extrahepatic biliary ducts, concerning for common bile duct obstruction. Medications given by ED: NSS 500 mill bolus, Toradol 10 mg IV, Zofran 4 mg IV and morphine sulfate 4 mg IV Admission Exam Per Admitting Provider The patient is awake, alert and oriented 3, well developed and well nourished, normocephalic and atraumatic, lying in bed and in no acute distress. HEENT--PERRL, EOMI, mucous membranes and oropharynx mildly dry. Neck--supple. No JVD. No bruits. Thyroid normal, trachea midline, no adenopathy. Heart--normal S1 and S2. No murmurs, rubs or gallops. Lungs--clear bilaterally, no respiratory distress, no accessory muscle use. Abdomen--normal bowel sounds and soft. Mildly tender right upper quadrant status post morphine. Nondistended, no hernias or masses, no organomegaly. Extremities--no cyanosis or clubbing. No edema. Dermatologic--normal skin turgor, normal color, no abnormal lymph nodes, no rash. Neurologic--cranial nerves II through XII grossly intact. Rheumatologic--normal range of motion. Psychiatric--normal affect. Principal Diagnosis 1. CBD stone, status post removal and stent placement 2. Obstructive jaundice secondary to CBD stone 3. Hydronephrosis of the right kidney. Will need to be pursued by PCP Discharge Exam general: Awake, conversant Heart: S1, S2/regular rate and rhythm, no murmur rubs or gallops Lungs: Clear to auscultation bilaterally. Normal effort Abdomen: Soft/nontender/nondistended. No hepatosplenomegaly Extremities: No clubbing/cyanosis. No edema Behavior: Appropriate, cooperative Discharge Data Allergies Allergy/AdvReac Type Severity Reaction Status Date / Time No Known Drug Allergies Allergy NKDA Verified 07/30/23 22:27 Consultations 07/30/23 20:37 ED Decision to Admit Stat 07/31/23 00:24 Consult Gastroenterology Routine Consult General Surgery Routine Procedures Performed Operation Date: 08/02/23 09:10 <No data on this case meets the specified criteria> Ordered Studies 07/30/23 18:06 US gallbladder Stat 07/30/23 21:06 MR MRCP Stat 08/01/23 14:00 FL ERCP biliary ductal Routine Hospital Course (1) Common bile duct obstruction: s/p ERCP today by Arthur Pacheco GI removal of 1 CBD stone no purulent bile present thus no cholangitis metal stent placed due to mild bleeding from sphincterotomy site tolerated solid diet repeat LFTs wnl on Zosyn, will be discharged on p.o. Augmentin no evidence of acute cholecystitis at this time; urgent lap garrett not needed outpatient laparoscopic cholecystectomy is being planned Follow-up with surgery outpatient follow-up with GI in 6 to 8 weeks (2) Abnormal LFTs: 2nd to choledocholithiasis improving LFTs today repeat LFTs am (3) Gall stones: RUQ u/s and MRCP with multiple gallstones but no imaging evidence of acute cholecystitis at this time gen surg consult appreciated ultimately will need lap garrett in near future as outpatient (4) Hypokalemia: 2nd to HCTZ use replaced resolved mag level wnl (5) Hypertension: typically on both HCTZ & amlodipine both were on hold BPs now rising resume amlodipine in am cont HCTZ (6) Hydronephrosis of right kidney: seen incidentally on imaging will need dedicated work-up for this -- refer to urology in the future u/a wnl no urinary symptoms informed patient about this (7) Tobacco use disorder, continuous: (8) Migraine: no headache at this time (9) Dehydration, mild: resolved (10) Bronchitis: recent bronchitis Total Time Total Time Spent Total Time Spent (In Minutes): 35 Discharge Plan Discharge Items Patient Disposition: Home - Self-Care Reason For Visit: CBD OBSTRUCTION, ABNORMAL LFT'S Discharge Diagnosis: 1. CBD stone, status post removal and stent placement 2. Obstructive jaundice secondary to CBD stone Condition on Discharge: Fair Activity: Resume your previous activity Non-emergency contact: Primary Care Provider Call non-emergency contact if: you have any medication questions and your symptoms worsen Follow-up/Referrals: Anaya Solitario MD [Primary Care Provider] - 08/05/23 8:00 am Diet: Heart Healthy Addtl Attending Provider Instructions: 1. Advised to follow-up with PCP in 1 week 2. Advised to follow-up with general surgery in 1 week for gallbladder removal Pending Studies at Discharge: No Stand-Alone Forms: My [facility] Medications and DC Order Prescriptions: New amoxicillin-pot clavulanate [Augmentin] 500-125 mg tablet 1 tab PO BID 7 Days Qty: 14 0RF Continued sumatriptan succinate 100 mg tablet 100 mg PO UD PRN (Reason: Migraine Headache) Qty: 10 5RF Rx Instructions: 100 mg PO TAKE ONE TABLET AT ONSET OF MIGRAINE; MAY REPEAT IN 2 HOURS IF NEEDED trazodone 50 mg tablet 50 mg PO HS Qty: 90 3RF hydrochlorothiazide 25 mg tablet 25 mg PO DAILY Qty: 90 1RF amlodipine 10 mg tablet 10 mg PO DAILY Qty: 90 1RF Excedrin Migraine 250-250-65 mg Tablet 2 tab PO DIRECTED PRN (Reason: Migraine Headache) Discharge Orders: Discharge Order (Routine); Ordered 08/02/23 Ordered By: Alondra Garcia/Other Patient Handouts: What Are Gallstones Admission Data Admit Date/Time: 07/30/23 21:25 Attending Provider: Alondra Hood Admit Provider: Wallace López Primary Care Provider: Anaya Solitario Other Providers: Wallace López ; Abe Ferrara Jr ; Edy Frias Other Interventions: Discharge Summary Assessment (RN) Last Done: 08/02/23 14:41 Coding Level of Care Code 02984 INP/OBS DISCH >30 MIN Diagnoses Common bile duct obstruction K83.1 Abnormal LFTs R79.89 Gall stones K80.20 Hypokalemia E87.6 Hypertension I10 Hydronephrosis of right kidney N13.30 Tobacco use disorder, continuous F17.209 Migraine G43.909 Dehydration, mild E86.0 Bronchitis J40
== END 2023-08-02 15:49 | disposition home or self-care (01) | DRG 445 ==
LOC: ED 17:26 → 3N 21:25 → SUATTDRO 21:25 → 3N 22:50